=== PATIENT | male | born 1950 | race African-American/Black ===

== ENCOUNTER 2018-01-08 09:30 | Outpatient (RCR) | payer MEDICARE, OTHER | END 2018-01-20 | disposition home or self-care (01) | LOC: PTY 09:30 | DX: M54.5 Low back pain (principal) | CPT/HCPCS: 97110; 97162; G8978; G8979 ==

== ENCOUNTER 2018-02-05 11:00 | Outpatient (RCR) | payer MEDICARE, OTHER | END 2018-02-20 | disposition home or self-care (01) | LOC: PTY 11:00 | DX: M54.5 Low back pain (principal) ==

== ENCOUNTER 2018-02-26 11:05 | Outpatient (RCR) | payer MEDICARE, OTHER | END 2018-03-23 | disposition home or self-care (01) | LOC: PTY 11:05 | DX: M54.5 Low back pain (principal) ==

== ENCOUNTER 2018-04-02 11:10 | Outpatient (RCR) | payer MEDICARE, OTHER | END 2018-04-22 | disposition home or self-care (01) | LOC: PTY 11:10 | DX: M54.5 Low back pain (principal); G89.29 Other chronic pain; M25.512 Pain in left shoulder; M25.511 Pain in right shoulder ==

== ENCOUNTER 2018-05-02 11:00 | Outpatient (RCR) | payer MEDICARE, OTHER | END 2018-05-23 | disposition home or self-care (01) | LOC: PTY 11:00 | DX: M54.5 Low back pain (principal); G89.29 Other chronic pain; M25.512 Pain in left shoulder; M25.511 Pain in right shoulder | CPT/HCPCS: 97110; G8978; G8979 ==

== ENCOUNTER 2018-07-21 08:33 | Inpatient (IN) | payer MEDICARE, OTHER ==
[~2018-07-21] VITALS: Ht 172.7 cm; Wt 106.1 kg
[2018-07-21] MEDS ORDERED: METFORMIN HCL500 M1 ORAL (08:42)
[2018-07-21] MEDS ORDERED: HYDROCHLOROTHIA50 MG ORAL (08:42)
[2018-07-21] MEDS ORDERED: GLUCOTROL XL10 MG ORAL (08:42)
[2018-07-21] MEDS ORDERED: METOPROLOL SUCC50 MG ORAL (08:42)
[2018-07-21] MEDS ORDERED: Isovue-300 100ml vial INJ PRN (08:45)
[2018-07-21 08:57] VITALS: BP 160/97
--- NOTE | 2018-07-21 09:08 | Emergency Room Report ---
History of Present Illness General Chief Complaint: Abdominal Pain Source: Patient Present Illness HPI Patient presents with abdominal distention and discomfort. This started Hugo day after eating gumbo that he thinks might of been bad. He felt distended and constipated. He took multiple laxatives and this caused diarrhea. This hasn't improved the distention. However he stopped eating 2 days ago and also stopped taking his diabetes medication at that time. He denies any vomiting. The pain is rated 6/10 and constant but more of a distended feeling. He denies any dysuria. He is followed by a urologist for a urethral stricture. No blood in the stool. He's felt chills but has no documented fever. He thinks his blood sugars are elevated but hasn't been checking. He feels weak with standing. Patient denies sore throat, cough, chest pain aside from the pressure from his stomach. Not taking insulin. H/O HTN. Allergies: Coded Allergies: No Known Allergies (Unverified , 01/03/18) Patient History Past Medical History: see triage record Social History: Denies: smoking, alcohol use, drug use Social History Narrative from home Reviewed Nursing Documentation: PMH: Agreed; PSxH: Agreed Nursing Documentation-PMH Past Medical History: No History, Except For Hx Hypertension: Yes Hx Diabetes: Yes - Type 2 Review of Systems All Other Systems: negative except mentioned in HPI Physical Exam Vital Signs Date Time Temp Pulse Resp B/P (MAP) Pulse Ox O2 Delivery O2 Flow Rate FiO2 07/21/18 08:36 98.2 129 20 96/65 98 Room Air Sp02 EP Interpretation: reviewed, normal General Appearance: well appearing, no apparent distress, GCS 15 Head: normocephalic Eyes: bilateral eye normal inspection, bilateral eye PERRL ENT: moist mucus membranes Neck: supple Respiratory: lungs clear, normal breath sounds Cardiovascular #1: regular rate, rhythm Cardiovascular #2: 2+ radial (R) Gastrointestinal: normal inspection, normal bowel sounds, soft, no mass, no rebound, distended, tenderness - with some diffuse guarding Genitourinary: no CVA tenderness Musculoskeletal: back normal, gait/station normal, normal range of motion Neurologic: alert, oriented x3, grossly normal Psychiatric: mood/affect normal Skin: normal inspection, warm/dry Medical Decision Making Diagnostic Impression: Primary Impression: Abdominal pain Qualified Codes: R10.84 - Generalized abdominal pain Additional Impression: Cholecystitis ER Course Patient presents with abdominal distention for 4 days. Differential includes small bowel obstruction, gastroenteritis, pancreatitis, diverticulitis, urinary tract infection, diabetic ketoacidosis amongst others. Patient will be evaluated with EKG, chest x-ray and CT of the abdomen and also labs. The patient will be treated with IV hydration, Zofran, Tylenol. Initial Accu-Chek is 237. Elevated WBC. CT with cholecystitis. BC and antibiotics ordered. Patient declines more analgesia. Discussed results with patient. Admit med Dr. Garcias. Dr. Garcias and Dr. Sosa examined patient in ED. Laboratory Tests Test 07/21/18 09:12 White Blood Count 19.4 K/UL (4.8-10.8) H Red Blood Count 5.22 M/UL (4.70-6.10) Hemoglobin 15.7 G/DL (14.2-18.0) Hematocrit 47.5 % (42.0-52.0) Mean Corpuscular Volume 91 FL (80-99) Mean Corpuscular Hemoglobin 30.1 PG (27.0-31.0) Mean Corpuscular Hemoglobin Concent 33.1 G/DL (32.0-36.0) Red Cell Distribution Width 13.1 % (11.6-14.8) Platelet Count 225 K/UL (150-450) Mean Platelet Volume 5.6 FL (6.5-10.1) L Neutrophils (%) (Auto) % (45.0-75.0) Lymphocytes (%) (Auto) % (20.0-45.0) Monocytes (%) (Auto) % (1.0-10.0) Eosinophils (%) (Auto) % (0.0-3.0) Basophils (%) (Auto) % (0.0-2.0) Differential Total Cells Counted 100 Neutrophils % (Manual) 87 % (45-75) H Lymphocytes % (Manual) 7 % (20-45) L Monocytes % (Manual) 5 % (1-10) Eosinophils % (Manual) 0 % (0-3) Basophils % (Manual) 0 % (0-2) Band Neutrophils 1 % (0-8) Platelet Estimate Adequate Platelet Morphology Normal Red Blood Cell Morphology Normal Prothrombin Time 9.0 SEC (9.30-11.50) L Prothrombin Time INR 0.8 (0.9-1.1) L PTT 29 SEC (23-33) Sodium Level 134 MMOL/L (136-145) L Potassium Level 3.7 MMOL/L (3.5-5.1) Chloride Level 94 MMOL/L (98-107) L Carbon Dioxide Level 28 MMOL/L (21-32) Anion Gap 12 mmol/L (5-15) Blood Urea Nitrogen 20 mg/dL (7-18) H Creatinine 1.5 MG/DL (0.55-1.30) H Estimate Glomerular Filtration Rate 56.6 mL/min (>60) Glucose Level 248 MG/DL (74-106) H Lactic Acid Level 3.60 mmol/L (0.4-2.0) H Calcium Level 9.8 MG/DL (8.5-10.1) Total Bilirubin 1.4 MG/DL (0.2-1.0) H Direct Bilirubin 0.4 MG/DL (0.0-0.3) H Aspartate Amino Transferase (AST) 37 U/L (15-37) Alanine Aminotransferase (ALT) 62 U/L (12-78) Alkaline Phosphatase 97 U/L (46-116) Total Creatine Kinase 325 U/L (26-308) H Troponin I 0.016 ng/mL (0.000-0.056) Pro-B-Type Natriuretic Peptide 212 pg/mL (0-125) H Total Protein 8.7 G/DL (6.4-8.2) H Albumin 3.9 G/DL (3.4-5.0) Globulin 4.8 g/dL Albumin/Globulin Ratio 0.8 (1.0-2.7) L Lipase 91 U/L (73-393) EKG Diagnostic Results Rate: tachycardiac ST Segments: no acute changes Rhythm Strip Diag. Results EP Interpretation: yes Rhythm: no PVC's, no ectopy, other - Sinus tachycardia Chest X-Ray Diagnostic Results Chest X-Ray Diagnostic Results : Chest X-Ray Ordered: Yes # of Views/Limited/Complete: 1 View Indication: Other Interpretation: no consolidation, no effusion, no pneumothorax Impression: No acute disease Electronically Signed by: Tadeo Roy MD CT/MRI/US Diagnostic Results CT/MRI/US Diagnostic Results : Imaging Test Ordered: abd/pelvis Impression cholecystitis Last Vital Signs Date Time Temp Pulse Resp B/P (MAP) Pulse Ox O2 Delivery O2 Flow Rate FiO2 07/21/18 18:39 106 07/21/18 16:25 99.5 20 140/76 (97) 07/21/18 15:12 Room Air 07/21/18 13:39 99 Status: improved Referrals: NON PHYSICIAN (PCP) Tadeo Roy MD Jul 21, 2018 09:08
[2018-07-21 09:32] LABS: HEMATOCRIT 47.5 % (42.0-52.0); HEMOGLOBIN 15.7 G/DL (14.2-18.0); MEAN CORPUSCULAR VOLUME 91 FL (80-99); PLATELET COUNT 225 K/UL (150-450); RED BLOOD COUNT 5.22 M/UL (4.70-6.10); RED CELL DISTRIBUTION WIDTH 13.1 % (11.6-14.8); WHITE BLOOD COUNT 19.4 K/UL (4.8-10.8)
--- NOTE | 2018-07-21 09:40 | Diagnostic Imaging Report ---
EXAM: XR Chest, 1 View CLINICAL HISTORY: ABD PAIN TECHNIQUE: Frontal view of the chest. COMPARISON: No relevant prior studies available. FINDINGS: Lungs: Reduced lung volumes and elevation of the left diaphragm. Mild basilar atelectasis. Pleural space: Query left pleural effusion. No pneumothorax. Heart: Unremarkable. No cardiomegaly. Mediastinum: Unremarkable. Bones/joints: No acute fracture. IMPRESSION: Reduced lung volumes and elevation of the left diaphragm. Mild basilar atelectasis.
[2018-07-21 09:45] LABS: ANION GAP 12 mmol/L (5-15); BLOOD UREA NITROGEN 20 mg/dL (7-18); CALCIUM 9.8 MG/DL (8.5-10.1); CARBON DIOXIDE 28 MMOL/L (21-32); CHLORIDE 94 MMOL/L (98-107); CREATININE 1.5 MG/DL (0.55-1.30); POTASSIUM 3.7 MMOL/L (3.5-5.1); SODIUM 134 MMOL/L (136-145)
[2018-07-21 09:52] LABS: INR 0.8 (0.9-1.1)
[2018-07-21 09:57] LABS: ALANINE AMINOTRANSFERASE 62 U/L (12-78); ALBUMIN 3.9 G/DL (3.4-5.0); ALBUMIN/GLOBULIN RATIO 0.8 (1.0-2.7); ALKALINE PHOSPHATASE 97 U/L (46-116); ASPARTATE AMINO TRANSFERASE 37 U/L (15-37); BILIRUBIN,TOTAL 1.4 MG/DL (0.2-1.0); CREATINE KINASE 325 U/L (26-308)
[2018-07-21 10:00] VITALS: BP 154/92
[2018-07-21 10:08] LABS: BILIRUBIN,DIRECT 0.4 MG/DL (0.0-0.3)
--- NOTE | 2018-07-21 10:34 | Diagnostic Imaging Report ---
EXAM: CT Abdomen and Pelvis With Intravenous Contrast CLINICAL HISTORY: ABD PAIN TECHNIQUE: Axial computed tomography images of the abdomen and pelvis with intravenous contrast. CTDI is 19.51 mGy and DLP is 1157 mGy-cm. One or more of the following dose reduction techniques were used: automated exposure control, adjustment of the mA and/or kV according to patient size, use of iterative reconstruction technique. COMPARISON: No relevant prior studies available. FINDINGS: Lung bases: Consolidative atelectasis in the left lung base. Heart: Cardiomegaly. ABDOMEN: Liver: Fatty liver. Gallbladder and bile ducts: Cholelithiasis, gallbladder wall thickening and surrounding haziness. Pancreas: Unremarkable. Spleen: Unremarkable. Adrenals: Unremarkable. Kidneys and ureters: Small low-attenuation foci in the left kidney. Stomach and bowel: Colonic diverticula. Reactive thickening in the stomach from the cholecystitis. PELVIS: Appendix: No findings to suggest acute appendicitis. Bladder: The bladder is underdistended and not well assessed. Reproductive: Unremarkable. ABDOMEN and PELVIS: Intraperitoneal space: Unremarkable. Bones/joints: Small sclerosis in the right acetabulum Soft tissues: Unremarkable. Vasculature: Unremarkable. No abdominal aortic aneurysm. Lymph nodes: No enlarged lymph nodes. IMPRESSION: Cholelithiasis, gallbladder wall thickening and surrounding haziness. Findings suggest cholecystitis. [employer] 07/21/18 10:38 Verify Receipt Verified receipt with MARJORIE Rios in ER for Dr Roy on 07/21 10:37 (-08:00)
[2018-07-21] MEDS ORDERED: Cefepime HCl 1 GM in D5W 55 ML IVPB ONE (10:45)
[2018-07-21] MEDS ORDERED: Milk of Magnesia 30ml Ud ORAL PRN (11:30)
[2018-07-21] MEDS ORDERED: Morphine Sulfate 2mg/ml Inj IVP PRN (11:30)
[2018-07-21] MEDS ORDERED: D5W w/KCl 20mEq 1,000 ML IV SCH (11:30)
[2018-07-21] MEDS ORDERED: Morphine Sulfate 4mg/ml Inj (IV/IM USE ONLY) IVP PRN ×2 (11:30)
[2018-07-21] MEDS ORDERED: Zolpidem 5mg tab ORAL PRN (11:30)
[2018-07-21] MEDS ORDERED: HYDROmorphone 1mg/ml Carpuject IVP PRN (11:30)
[2018-07-21] MEDS ORDERED: Hydromorphone 0.5mg/0.5ml inj IVP PRN (11:30)
[2018-07-21] MEDS ORDERED: LORazepam Inj 2mg/ml 1ml IV PRN (11:30)
[2018-07-21] MEDS ORDERED: NovoLOG Insulin Flexpen SUBQ SCH ×2 (11:30→16:30)
[2018-07-21] MEDS ORDERED: Nitroglycerin Subl 0.4mg tab SL PRN (11:30)
--- NOTE | 2018-07-21 12:15 | History and Physical Report ---
DATE OF ADMISSION: 07/21/2018 CHIEF COMPLAINT AND REASON FOR HOSPITALIZATION: The patient is admitted with right upper quadrant pain and cholecystitis. 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 He presents with right upper quadrant pain on and off since 07/16/2018. He tried laxatives diarrhea, and that he had bloating and pain, which has progressed and he came to the emergency room. The CT abdomen shows fatty liver, cholelithiasis, gallbladder wall thickening, and surrounding haziness. The patient has no prior history of cholecystitis or liver disease. He had coronary artery stent in the right coronary in 2004 with a negative stress test in 2007. No cardiac symptoms since then. ALLERGIES: None known. HOME MEDICATIONS: Glipizide 10 mg daily, metformin 500 mg b.i.d., metoprolol 50 mg daily, hydrochlorothiazide 50 mg daily, Flomax 0.4 b.i.d., aspirin 81 mg daily, Plavix 75 mg daily, Motrin 800 mg b.i.d., isosorbide 20 mg daily, atorvastatin 40 mg daily, and a muscle relaxant at bedtime. HABITS: He is a nonsmoker. He did use marijuana in the past. He is a moderate alcohol drinker. He has used other drugs in the past, but no intravenous drug usage. SOCIAL HISTORY: He is single, retired. SYSTEM REVIEW: HEAD, EYES, EARS, NOSE, AND THROAT: He has dry eyes. No diabetic retinopathy. Vision and hearing is good. ENDOCRINE: Diabetes. No obesity. No known thyroid disease. PULMONARY: No chronic cough or asthma. CARDIAC: See history of present illness. GASTROINTESTINAL: No GI bleeding or ulcers or chronic abdominal pain. GENITOURINARY: He has urethral stricture that is dilated every three months by urologist. He is currently voiding well. No dysuria or hesitancy. NEUROLOGIC: No CVA, syncope or seizures. HEMATOLOGIC/ONCOLOGIC: No bleeding disorder, DVT or malignancy. PAST SURGICAL HISTORY: Include fusion of C3-C6, coronary artery stenting, and urethral stricture dilation. PHYSICAL EXAMINATION: GENERAL: The patient is alert man, in no acute distress. VITAL SIGNS: BMI 35.7, temperature 98.5, pulse 118, respirations 19, blood pressure 154/92, and pulse oximetry 96. HEAD, EYES, EARS, NOSE, AND THROAT: Sclerae nonicteric. Ocular motions intact in all directions. Oral mucosa moist. NECK: No adenopathy or thyroid enlargement. LUNGS: Clear. HEART: Rhythm is regular. No murmur. ABDOMEN: Obese and soft. I am unable to feel liver or spleen. There is mild tenderness in the right upper quadrant to deep palpation. GENITOURINARY: Penis and testes normal. RECTAL: Deferred. EXTREMITIES: No edema, cyanosis, or clubbing. NEUROLOGIC: He is alert and oriented. Cranial nerves are intact. PERTINENT LABORATORY DATA: White count 19.4, hemoglobin is 15.7. Sodium 134, potassium 3.7, BUN 20, creatinine 1.5, bilirubin is 1.4. Troponin 0.016. Albumin 3.9. AST, ALT, and alkaline phosphatase are all normal. IMPRESSION: 1. Acute cholecystitis. 2. Borderline troponin of uncertain significance. 3. History of coronary disease with no recent symptoms. 4. Diabetes. 5. Obesity. PLAN: The patient was started on IV antibiotics and NPO. We will have surgical consultation, watch him closely in view of his comorbidities. Souleymane Garcias M.D. : ELVI/OZIEL JOB#: [id number] CC:
--- NOTE | 2018-07-21 12:45 | Consultation ---
History of Present Illness General Date patient seen: Jul 21, 2018 Chief Complaint: Abdominal Pain Present Illness HPI 68 year old male with multiple medical comorbidities presented to ED with complaints of worsening abdominal pain. States pain began [employer] evening after dinner and present since. Has not been improving and intermittently acutely worse so he came to ED for evaluation. pain RUQ/epigastric 8/10 at max. attempted multiple over the counter laxatives and antacids without relief. intermittent nausea. no emesis. constipated. In ED noted to have cholecystitis. surgery called to evaluate. patient seen, chart reviewed, patient examined. labs noted. CT noted Allergies: Coded Allergies: No Known Allergies (Unverified , 01/03/18) Medication History Scheduled Glipizide* (Glucotrol Xl*), 10 MG ORAL ACBREAKFAST, (Reported) Hydrochlorothiazide* (Hydrochlorothiazide*), 50 MG ORAL DAILY, (Reported) Metformin Hcl* (Metformin Hcl*), 500 MG ORAL TWICE A DAY, (Reported) Metoprolol Succinate* (Metoprolol Succinate*), 50 MG ORAL DAILY, (Reported) Patient History History Provided By: Patient, Medical Record, PMD Healthcare decision maker Resuscitation status Advanced Directive on File Past Medical/Surgical History Past Medical/Surgical History: (1) Abdominal pain (2) Cholecystitis Review of Systems All Other Systems: negative except mentioned in HPI Physical Exam General Appearance: no apparent distress, alert Lines, tubes and drains: peripheral HEENT: mucous membranes moist Neck: supple, normal inspection Respiratory/Chest: normal breath sounds, no respiratory distress, no accessory muscle use Cardiovascular/Chest: normal rate Abdomen: soft, no organomegaly, no mass, guarding - RUQ, tender Extremities: normal inspection Skin Exam: warm/dry Neurologic: alert, oriented x 3 Last 24 Hour Vital Signs Date Time Temp Pulse Resp B/P (MAP) Pulse Ox O2 Delivery O2 Flow Rate FiO2 07/21/18 10:00 98.5 118 19 154/92 96 Room Air 07/21/18 08:57 98.4 127 18 160/97 94 Room Air 07/21/18 08:57 127 18 Room Air 07/21/18 08:36 98.2 129 20 96/65 98 Room Air Laboratory Tests Test 07/21/18 09:12 White Blood Count 19.4 K/UL (4.8-10.8) H Red Blood Count 5.22 M/UL (4.70-6.10) Hemoglobin 15.7 G/DL (14.2-18.0) Hematocrit 47.5 % (42.0-52.0) Mean Corpuscular Volume 91 FL (80-99) Mean Corpuscular Hemoglobin 30.1 PG (27.0-31.0) Mean Corpuscular Hemoglobin Concent 33.1 G/DL (32.0-36.0) Red Cell Distribution Width 13.1 % (11.6-14.8) Platelet Count 225 K/UL (150-450) Mean Platelet Volume 5.6 FL (6.5-10.1) L Neutrophils (%) (Auto) % (45.0-75.0) Lymphocytes (%) (Auto) % (20.0-45.0) Monocytes (%) (Auto) % (1.0-10.0) Eosinophils (%) (Auto) % (0.0-3.0) Basophils (%) (Auto) % (0.0-2.0) Differential Total Cells Counted 100 Neutrophils % (Manual) 87 % (45-75) H Lymphocytes % (Manual) 7 % (20-45) L Monocytes % (Manual) 5 % (1-10) Eosinophils % (Manual) 0 % (0-3) Basophils % (Manual) 0 % (0-2) Band Neutrophils 1 % (0-8) Platelet Estimate Adequate Platelet Morphology Normal Red Blood Cell Morphology Normal Prothrombin Time 9.0 SEC (9.30-11.50) L Prothromb Time International Ratio 0.8 (0.9-1.1) L Activated Partial Thromboplast Time 29 SEC (23-33) Sodium Level 134 MMOL/L (136-145) L Potassium Level 3.7 MMOL/L (3.5-5.1) Chloride Level 94 MMOL/L (98-107) L Carbon Dioxide Level 28 MMOL/L (21-32) Anion Gap 12 mmol/L (5-15) Blood Urea Nitrogen 20 mg/dL (7-18) H Creatinine 1.5 MG/DL (0.55-1.30) H Estimat Glomerular Filtration Rate 56.6 mL/min (>60) Glucose Level 248 MG/DL (74-106) H Lactic Acid Level 3.60 mmol/L (0.4-2.0) H Calcium Level 9.8 MG/DL (8.5-10.1) Total Bilirubin 1.4 MG/DL (0.2-1.0) H Direct Bilirubin 0.4 MG/DL (0.0-0.3) H Aspartate Amino Transf (AST/SGOT) 37 U/L (15-37) Alanine Aminotransferase (ALT/SGPT) 62 U/L (12-78) Alkaline Phosphatase 97 U/L (46-116) Total Creatine Kinase 325 U/L (26-308) H Troponin I 0.016 ng/mL (0.000-0.056) Pro-B-Type Natriuretic Peptide 212 pg/mL (0-125) H Total Protein 8.7 G/DL (6.4-8.2) H Albumin 3.9 G/DL (3.4-5.0) Globulin 4.8 g/dL Albumin/Globulin Ratio 0.8 (1.0-2.7) L Lipase 91 U/L (73-393) Height (Feet): 5 Height (Inches): 8.00 Weight (Pounds): 235 Medications Current Medications Medications (Trade) Dose Ordered Sig/Eben Route PRN Reason Start Time Stop Time Status Last Admin Dose Admin Acetaminophen (Tylenol) 650 mg Q4H PRN ORAL Mild Pain (Pain Scale 1-3) 07/21/18 11:30 08/20/18 11:29 UNV Acetaminophen (Tylenol) 650 mg Q4H PRN ORAL fever 07/21/18 11:30 08/20/18 11:29 UNV Atorvastatin Calcium (Lipitor) 40 mg QHS ORAL 07/21/18 21:00 08/20/18 20:59 UNV Cyclobenzaprine HCl (Flexeril) 10 mg QHS ORAL 07/21/18 21:00 08/20/18 20:59 UNV Dextrose (Dextrose 50%) 25 ml Q30M PRN IV Hypoglycemia 07/21/18 11:30 08/20/18 11:29 Dextrose (Dextrose 50%) 25 ml Q30M PRN IV Hypoglycemia 07/21/18 11:30 08/20/18 11:29 UNV Dextrose (Dextrose 50%) 50 ml Q30M PRN IV Hypoglycemia 07/21/18 11:30 08/20/18 11:29 Dextrose (Dextrose 50%) 50 ml Q30M PRN IV Hypoglycemia 07/21/18 11:30 08/20/18 11:29 UNV Dextrose/ Electrolytes 1,000 ml @ 100 mls/hr Q10H IV 07/21/18 12:17 08/20/18 12:16 UNV Famotidine (Pepcid I.v.) 20 mg Q12HR IVP 07/21/18 21:00 08/20/18 20:59 UNV Heparin Sodium (Porcine) (Heparin 5000 units/ml) 5,000 units EVERY 12 HOURS SUBQ 07/21/18 21:00 08/20/18 20:59 UNV Heparin Sodium (Porcine) (Heparin 5000 units/ml) 5,000 units EVERY 12 HOURS SUBQ 07/21/18 21:00 08/20/18 20:59 UNV Hydromorphone HCl (Dilaudid) 0.5 mg Q2HR PRN IVP For Pain 07/21/18 11:30 07/28/18 11:29 UNV Hydromorphone HCl (Dilaudid) 1 mg Q2HR PRN IVP Severe Pain (Pain Scale 7-10) 07/21/18 11:30 07/28/18 11:29 UNV Insulin Aspart (NovoLOG) BEFORE MEALS AND HS SUBQ 07/21/18 11:30 08/20/18 11:29 UNV Iopamidol (Isovue-300 100ml) 100 ml NOW PRN INJ Radiology Procedure 07/21/18 08:45 Lorazepam (Ativan 2mg/ml 1ml) 0.5 mg Q4H PRN IV For Anxiety 07/21/18 11:30 07/28/18 11:29 Magnesium Hydroxide (Mom) 30 ml HSPRN PRN ORAL Constipation 07/21/18 11:30 08/20/18 11:29 UNV Metoprolol Succinate (Toprol XL) 50 mg DAILY ORAL 07/22/18 09:00 08/21/18 08:59 UNV Morphine Sulfate (Morphine Sulfate) 1 mg Q3H PRN IVP Breakthrough Pain 07/21/18 11:30 07/28/18 11:29 Morphine Sulfate (Morphine Sulfate) 2 mg Q3H PRN IVP Moderate Pain (Pain Scale 4-6) 07/21/18 11:30 07/28/18 11:29 Morphine Sulfate (Morphine Sulfate) 4 mg Q3H PRN IVP Severe Pain (Pain Scale 7-10) 07/21/18 11:30 07/28/18 11:29 Nitroglycerin (Nitro-Bid) 1 inch Q6HR ONCE TOPIC 07/21/18 12:00 07/21/18 12:01 UNV Nitroglycerin (Ntg) 0.4 mg Q5M X 3 DOSES PRN SL Prn Chest Pain 07/21/18 11:30 08/20/18 11:29 UNV Ondansetron HCl (Zofran) 4 mg Q4HR PRN IVP Nausea & Vomiting 07/21/18 11:30 08/20/18 11:29 UNV Ondansetron HCl (Zofran) 4 mg Q6H PRN IVP Nausea & Vomiting 07/21/18 11:30 08/20/18 11:29 Piperacillin Sod/ Tazobactam Sod 3.375 gm/Sodium Chloride 100 ml @ 200 mls/hr Q8HR IVPB 07/21/18 14:00 07/28/18 13:59 UNV Piperacillin Sod/ Tazobactam Sod 3.375 gm/Sodium Chloride 110 ml @ 220 mls/hr EVERY 8 HOURS IVPB 07/21/18 14:00 07/28/18 13:59 UNV Sodium Chloride 1,000 ml @ 300 mls/hr Q3H20M IV 07/21/18 08:45 08/20/18 08:44 07/21/18 11:47 Tamsulosin HCl (Flomax) 0.4 mg BID ORAL 07/21/18 18:00 08/20/18 17:59 UNV Temazepam (Restoril) 15 mg HSPRN PRN ORAL Insomnia 07/21/18 11:30 07/28/18 11:29 UNV Zolpidem Tartrate (Ambien) 5 mg HSPRN PRN ORAL Insomnia 07/21/18 11:30 07/28/18 11:29 UNV Assessment/Plan Problem List: (1) Cholecystitis Assessment & Plan: acute cholecystitis tachycardic leukocytosis elevated lfts CT noted exam with +murphys -npo -iv fluids -iv abx -need to cool down -ultrasound ordered -trend labs thank you will follow with recs. ICD Codes: K81.9 - Cholecystitis, unspecified SNOMED: [id number] Status: stable [place] Jul 21, 2018 12:45
[2018-07-21 13:09] LABS: APPEARANCE,URINE CLEAR; BILIRUBIN, URINE NEGATIVE (NEGATIVE); COLOR,URINE PALE YELLOW; GLUCOSE, URINE (UA) 3+ (NEGATIVE); KETONES,URINE 1+ (NEGATIVE); LEUKOCYTE ESTERASE ,URINE NEGATIVE (NEGATIVE); NITRITE,URINE NEGATIVE (NEGATIVE); PH,URINE 7 (4.5-8.0); PROTEIN,URINE 2+ (NEGATIVE); UROBILINOGEN,URINE NORMAL MG/DL (0.0-1.0)
[2018-07-21 13:39] VITALS: BP 137/80
[2018-07-21] MEDS ORDERED: Nitroglycerin 2% oint pkt TOPIC ONE (13:57)
[2018-07-21] MEDS ORDERED: Piperacillin/Tazobactam 3.375 GM in NS 110 ML IVPB SCH (14:00)
[2018-07-21] MEDS: Piperacillin/Tazobactam 3.375 GM in NS 110 ML IVPB SCH ×2 (15:53→22:19)
[2018-07-21 16:25] VITALS: BP 140/76
[2018-07-21] MEDS: Morphine Sulfate 4mg/ml Inj (IV/IM USE ONLY) IVP PRN (16:49)
[2018-07-21] MEDS: Tamsulosin 0.4mg cap ORAL SCH (18:00)
[2018-07-21 20:00] VITALS: BP 131/76
[2018-07-21] MEDS ORDERED: Atorvastatin 20mg tab ORAL SCH (21:00)
[2018-07-21] MEDS ORDERED: Heparin 5000 units/ml inj SUBQ SCH (21:00)
[2018-07-21] MEDS ORDERED: Cyclobenzaprine 10mg Tab ORAL SCH (21:00)
--- NOTE | 2018-07-21 21:28 | Diagnostic Imaging Report ---
EXAM: US Abdomen Complete CLINICAL HISTORY: ABD PAIN TECHNIQUE: Real-time ultrasound of the abdomen (complete) with image documentation. COMPARISON: No relevant prior studies available. FINDINGS: Limitations: Examination limited due to patient body habitus and patient inability to complete the examination due to pain. Liver: Hepatic steatosis, correlate to exclude steatohepatitis. 17.5 cm No intrahepatic bile duct dilation. Gallbladder: Cholelithiasis without gallbladder wall thickening, pericholecystic fluid, and with negative sonographic Johnson sign. Gallbladder wall: 0.1 cm. Common bile duct: Unremarkable as visualized. No stones. No dilation. Pancreas: See below. Kidneys: Right kidney: 10.7 x 5.3 x 5.1 cm. Spleen: Due to above limitations, nonvisualized spleen, left kidney, pancreas, aorta, and IVC. Aorta: See above. Inferior vena cava: See above. IMPRESSION: 1. Examination limited due to patient body habitus and patient inability to complete the examination due to pain. 2. Due to above limitations, nonvisualized spleen, left kidney, pancreas, aorta, and IVC. 3. Cholelithiasis without sonographic evidence for the clinical diagnosis of acute cholecystitis. 4. Hepatic steatosis, correlate to exclude steatohepatitis.
[2018-07-21] MEDS: Heparin 5000 units/ml inj SUBQ SCH (22:19)
[2018-07-22] VITALS: BP 142/86
[2018-07-22 04:00] VITALS: BP 131/87
[2018-07-22] MEDS: Piperacillin/Tazobactam 3.375 GM in NS 110 ML IVPB SCH ×2 (05:59→16:46)
[2018-07-22] MEDS: NovoLOG Insulin Flexpen SUBQ SCH ×3 (06:04→17:42)
[2018-07-22 07:22] LABS: BASOPHILS % (AUTO) 0.9 % (0.0-2.0); EOSINOPHILS % (AUTO) 0.4 % (0.0-3.0); HEMATOCRIT 38.3 % (42.0-52.0); HEMOGLOBIN 12.5 G/DL (14.2-18.0); LYMPHOCYTES % (AUTO) 12.9 % (20.0-45.0); MEAN CORPUSCULAR VOLUME 92 FL (80-99); MONOCYTES % (AUTO) 11.3 % (1.0-10.0); NEUTROPHILS % (AUTO) 74.5 % (45.0-75.0); PLATELET COUNT 172 K/UL (150-450); RED BLOOD COUNT 4.15 M/UL (4.70-6.10); WHITE BLOOD COUNT 12.3 K/UL (4.8-10.8)
[2018-07-22 07:37] LABS: INR 1.1 (0.9-1.1)
[2018-07-22 08:00] VITALS: BP 120/76
[2018-07-22] MEDS: Tamsulosin 0.4mg cap ORAL SCH ×2 (08:23→17:33)
[2018-07-22] MEDS: Heparin 5000 units/ml inj SUBQ SCH ×2 (08:25→21:58)
[2018-07-22 08:29] LABS: ALANINE AMINOTRANSFERASE 124 U/L (12-78); ALBUMIN 2.7 G/DL (3.4-5.0); ALBUMIN/GLOBULIN RATIO 0.7 (1.0-2.7); ALKALINE PHOSPHATASE 93 U/L (46-116); ANION GAP 6 mmol/L (5-15); ASPARTATE AMINO TRANSFERASE 78 U/L (15-37); BILIRUBIN,TOTAL 1.5 MG/DL (0.2-1.0); BLOOD UREA NITROGEN 18 mg/dL (7-18); CALCIUM 8.4 MG/DL (8.5-10.1); CARBON DIOXIDE 28 MMOL/L (21-32); CHLORIDE 105 MMOL/L (98-107); CHOLESTEROL 122 MG/DL (< 200); CREATININE 1.3 MG/DL (0.55-1.30); HDL CHOLESTEROL 50 MG/DL (40-60); POTASSIUM 3.8 MMOL/L (3.5-5.1); SODIUM 139 MMOL/L (136-145); TRIGLYCERIDES 72 MG/DL (30-150)
[2018-07-22 08:39] LABS: BILIRUBIN,DIRECT 0.9 MG/DL (0.0-0.3)
[2018-07-22] MEDS: Morphine Sulfate 4mg/ml Inj (IV/IM USE ONLY) IVP PRN (08:39)
[2018-07-22] MEDS ORDERED: Aspirin Baby 81mg ORAL SCH (09:00)
[2018-07-22] MEDS ORDERED: Metoprolol Succinate XL 50mg tab ORAL SCH ×3 (09:00→21:00)
--- NOTE | 2018-07-22 11:19 | General Progress Note ---
Assessment/Plan Problem List: (1) Acute coronary syndromes ICD Codes: I24.9 - Acute ischemic heart disease, unspecified SNOMED: 254244790 (2) Diabetes ICD Codes: E11.9 - Type 2 diabetes mellitus without complications SNOMED: 79494508 (3) Rhabdomyolysis ICD Codes: M62.82 - Rhabdomyolysis SNOMED: 021872346 (4) Troponin level elevated ICD Codes: R74.8 - Abnormal levels of other serum enzymes SNOMED: 277493323, 965960845, 855230105 (5) Cholecystitis ICD Codes: K81.9 - Cholecystitis, unspecified SNOMED: 61663649 (6) Abdominal pain ICD Codes: R10.9 - Unspecified abdominal pain SNOMED: 57896901 Qualifiers: Qualified Codes: R10.84 - Generalized abdominal pain Assessment/Plan elevated trop and ck total, echo pending, ekg old iwmi, US noted, continue cardiac meds, antibiotics Subjective Constitutional: Reports: other - ruq pain HEENT: Reports: no symptoms Cardiovascular: Reports: other - chest pain when pushed on chest Respiratory: Reports: no symptoms Gastrointestinal/Abdominal: Reports: abdominal pain Genitourinary: Reports: no symptoms Neurologic/Psychiatric: Reports: no symptoms Endocrine: Reports: no symptoms Hematologic/Lymphatic: Reports: no symptoms Allergies: Coded Allergies: No Known Allergies (Unverified , 01/03/18) Objective Last 24 Hour Vital Signs Date Time Temp Pulse Resp B/P (MAP) Pulse Ox O2 Delivery O2 Flow Rate FiO2 07/22/18 09:00 Room Air 07/22/18 08:23 99 120/76 07/22/18 08:00 98.9 99 20 120/76 (91) 95 07/22/18 04:00 97.9 104 22 131/87 (102) 94 07/22/18 00:00 99.2 112 22 142/86 (104) 94 07/21/18 21:00 Room Air 07/21/18 20:00 97.8 116 22 131/76 (94) 94 07/21/18 18:39 106 07/21/18 16:25 99.5 122 20 140/76 (97) 07/21/18 15:12 Room Air 07/21/18 13:57 137/80 07/21/18 13:39 98.3 96 20 137/80 99 Room Air 07/21/18 13:36 98.5 118 19 154/92 96 Room Air Intake and Output 07/21/18 07/22/18 19:00 07:00 Intake Total 1200 ml 1210.0 ml Output Total 425 ml Balance 1200 ml 785.0 ml Intake IV Total 1200 ml 1210.0 ml Output Urine Total 425 ml # Voids 3 Laboratory Tests 07/21/18 12:30: Urine Color Pale yellow, Urine Appearance Clear, Urine pH 7, Urine Specific [place] 1.005, Urine Protein 2+H, Urine Glucose (UA) 3+H, Urine Ketones 1+H, Urine Blood 1+H, Urine Nitrite Negative, Urine Bilirubin Negative, Urine Urobilinogen Normal, Urine Leukocyte Esterase Negative, Urine RBC 0-2H, Urine WBC 0-2, Urine Squamous Epithelial Cells Occasional, Urine Bacteria Few 07/22/18 06:15: White Blood Count 12.3H, Red Blood Count 4.15L, Hemoglobin 12.5L, Hematocrit 38.3L, Mean Corpuscular Volume 92, Mean Corpuscular Hemoglobin 30.1, Mean Corpuscular Hemoglobin Concent 32.7, Red Cell Distribution Width 14.0, Platelet Count 172, Mean Platelet Volume 6.1L, Neutrophils (%) (Auto) 74.5, Lymphocytes ( %) (Auto) 12.9L, Monocytes (%) (Auto) 11.3H, Eosinophils (%) (Auto) 0.4, Basophils (%) (Auto) 0.9, Prothrombin Time 11.4, Prothromb Time International Ratio 1.1, Activated Partial Thromboplast Time 32, Sodium Level 139, Potassium Level 3.8, Chloride Level 105, Carbon Dioxide Level 28, Anion Gap 6, Blood Urea Nitrogen 18, Creatinine 1.3, Estimat Glomerular Filtration Rate > 60, Glucose Level 237H, Hemoglobin A1c 8.5H, Calcium Level 8.4L, Total Bilirubin 1.5H, Direct Bilirubin 0.9H, Aspartate Amino Transf (AST/SGOT) 78H, Alanine Aminotransferase (ALT/SGPT) 124H, Alkaline Phosphatase 93, Total Creatine Kinase 391H, Creatine Kinase MB 6.0H, Creatine Kinase MB Relative Index 1.5, Troponin I 0.812H, Total Protein 6.6, Albumin 2.7L, Globulin 3.9, Albumin/ Globulin Ratio 0.7L, Triglycerides Level 72, Cholesterol Level 122, LDL Cholesterol 66, HDL Cholesterol 50, Cholesterol/HDL Ratio 2.4L Height (Feet): 5 Height (Inches): 8.00 Weight (Pounds): 235 General Appearance: no apparent distress, obese EENT: normal ENT inspection Neck: normal alignment Cardiovascular: normal rate, regular rhythm Respiratory/Chest: lungs clear, normal breath sounds Abdomen: soft, other - mild ruq tender Extremities: no calf tenderness, other - no edema Souleymane Garcias MD Jul 22, 2018 11:19
[2018-07-22] MEDS ORDERED: Milk of Magnesia 30ml Ud ORAL PRN (11:30)
[2018-07-22] MEDS ORDERED: Nitroglycerin 2% oint pkt TOPIC SCH (12:00)
[2018-07-22 12:03] VITALS: BP 132/80
[2018-07-22] MEDS ORDERED: Nitroglycerin Subl 0.4mg tab SL PRN (13:00)
[2018-07-22] MEDS ORDERED: Isovue-300 100ml vial INJ PRN (13:30)
[2018-07-22] MEDS ORDERED: LORazepam Inj 2mg/ml 1ml IV PRN (13:30)
[2018-07-22] MEDS ORDERED: Hydromorphone 0.5mg/0.5ml inj IVP PRN (14:00)
[2018-07-22 16:00] VITALS: BP 152/78
[2018-07-22] MEDS: Nitroglycerin 2% oint pkt TOPIC SCH (17:32)
--- NOTE | 2018-07-22 17:42 | General Surgery Progress Note ---
General Surgery-Progress Note Subjective Additional Comments still with RUQ tenderness. labs noted no acute events. Objective Last 24 Hour Vital Signs Date Time Temp Pulse Resp B/P (MAP) Pulse Ox O2 Delivery O2 Flow Rate FiO2 07/22/18 17:32 157/78 07/22/18 12:13 132/80 07/22/18 12:03 97.3 76 17 132/80 (97) 98 07/22/18 09:00 Room Air 07/22/18 08:23 99 120/76 07/22/18 08:00 98.9 99 20 120/76 (91) 95 07/22/18 04:00 97.9 104 22 131/87 (102) 94 07/22/18 00:00 99.2 112 22 142/86 (104) 94 07/21/18 21:00 Room Air 07/21/18 20:00 97.8 116 22 131/76 (94) 94 07/21/18 18:39 106 I&O Intake and Output 07/21/18 07/22/18 19:00 07:00 Intake Total 1200 ml 1210.0 ml Output Total 425 ml Balance 1200 ml 785.0 ml Intake IV Total 1200 ml 1210.0 ml Output Urine Total 425 ml # Voids 3 Drains: none Cardiovascular: RSR Respiratory: clear Abdomen: soft, tenderness, present bowel sounds, other - +murphys Extremities: no cyanosis Laboratory Tests Test 07/22/18 06:15 07/22/18 17:00 White Blood Count 12.3 K/UL (4.8-10.8) H Red Blood Count 4.15 M/UL (4.70-6.10) L Hemoglobin 12.5 G/DL (14.2-18.0) L Hematocrit 38.3 % (42.0-52.0) L Mean Corpuscular Volume 92 FL (80-99) Mean Corpuscular Hemoglobin 30.1 PG (27.0-31.0) Mean Corpuscular Hemoglobin Concent 32.7 G/DL (32.0-36.0) Red Cell Distribution Width 14.0 % (11.6-14.8) Platelet Count 172 K/UL (150-450) Mean Platelet Volume 6.1 FL (6.5-10.1) L Neutrophils (%) (Auto) 74.5 % (45.0-75.0) Lymphocytes (%) (Auto) 12.9 % (20.0-45.0) L Monocytes (%) (Auto) 11.3 % (1.0-10.0) H Eosinophils (%) (Auto) 0.4 % (0.0-3.0) Basophils (%) (Auto) 0.9 % (0.0-2.0) Prothrombin Time 11.4 SEC (9.30-11.50) Prothromb Time International Ratio 1.1 (0.9-1.1) Activated Partial Thromboplast Time 32 SEC (23-33) Sodium Level 139 MMOL/L (136-145) Potassium Level 3.8 MMOL/L (3.5-5.1) Chloride Level 105 MMOL/L (98-107) Carbon Dioxide Level 28 MMOL/L (21-32) Anion Gap 6 mmol/L (5-15) Blood Urea Nitrogen 18 mg/dL (7-18) Creatinine 1.3 MG/DL (0.55-1.30) Estimat Glomerular Filtration Rate > 60 mL/min (>60) Glucose Level 237 MG/DL (74-106) H Hemoglobin A1c 8.5 % (4.3-6.0) H Calcium Level 8.4 MG/DL (8.5-10.1) L Total Bilirubin 1.5 MG/DL (0.2-1.0) H Direct Bilirubin 0.9 MG/DL (0.0-0.3) H Aspartate Amino Transf (AST/SGOT) 78 U/L (15-37) H Alanine Aminotransferase (ALT/SGPT) 124 U/L (12-78) H Alkaline Phosphatase 93 U/L (46-116) Total Creatine Kinase 391 U/L (26-308) H Pending Creatine Kinase MB 6.0 NG/ML (0.0-3.6) H Pending Creatine Kinase MB Relative Index 1.5 Troponin I 0.812 ng/mL (0.000-0.056) Pending Total Protein 6.6 G/DL (6.4-8.2) Albumin 2.7 G/DL (3.4-5.0) L Globulin 3.9 g/dL Albumin/Globulin Ratio 0.7 (1.0-2.7) L Triglycerides Level 72 MG/DL (30-150) Cholesterol Level 122 MG/DL (< 200) LDL Cholesterol 66 mg/dL (<100) HDL Cholesterol 50 MG/DL (40-60) Cholesterol/HDL Ratio 2.4 (3.3-4.4) L Plan Problems: (1) Cholecystitis Assessment & Plan: acute cholecystitis tachycardic leukocytosis elevated lfts CT noted exam with +murphys US noted leukocytosis improved but lft's still abnormal troponin noted -npo -iv fluids -iv abx -need to cool down -appreciate cardiology input -trend labs thank you will follow with recs. Bjorn Sosa Jul 22, 2018 17:42
[2018-07-22 17:50] LABS: CKMB 5.7 NG/ML (0.0-3.6)
[2018-07-22 20:00] VITALS: BP 152/62
[2018-07-22] MEDS ORDERED: Zolpidem 5mg tab ORAL PRN (20:00)
--- NOTE | 2018-07-22 20:11 | Cardiology Progress Note ---
Assessment/Plan Assessment/Plan The patient is seen and examined, full consult note will be dictated shortly. Objective Last 24 Hour Vital Signs Date Time Temp Pulse Resp B/P (MAP) Pulse Ox O2 Delivery O2 Flow Rate FiO2 07/22/18 18:00 100 07/22/18 17:32 157/78 07/22/18 16:00 98.2 87 18 152/78 (102) 94 07/22/18 13:13 99 07/22/18 12:13 132/80 07/22/18 12:03 97.3 76 17 132/80 (97) 98 07/22/18 09:00 Room Air 07/22/18 08:23 99 120/76 07/22/18 08:00 98.9 99 20 120/76 (91) 95 07/22/18 04:00 97.9 104 22 131/87 (102) 94 07/22/18 00:00 99.2 112 22 142/86 (104) 94 07/21/18 21:00 Room Air Intake and Output 07/21/18 07/22/18 19:00 07:00 Intake Total 1200 ml 1210.0 ml Output Total 425 ml Balance 1200 ml 785.0 ml Intake IV Total 1200 ml 1210.0 ml Output Urine Total 425 ml # Voids 3 Laboratory Tests Test 07/22/18 06:15 07/22/18 17:00 White Blood Count 12.3 K/UL (4.8-10.8) H Red Blood Count 4.15 M/UL (4.70-6.10) L Hemoglobin 12.5 G/DL (14.2-18.0) L Hematocrit 38.3 % (42.0-52.0) L Mean Corpuscular Volume 92 FL (80-99) Mean Corpuscular Hemoglobin 30.1 PG (27.0-31.0) Mean Corpuscular Hemoglobin Concent 32.7 G/DL (32.0-36.0) Red Cell Distribution Width 14.0 % (11.6-14.8) Platelet Count 172 K/UL (150-450) Mean Platelet Volume 6.1 FL (6.5-10.1) L Neutrophils (%) (Auto) 74.5 % (45.0-75.0) Lymphocytes (%) (Auto) 12.9 % (20.0-45.0) L Monocytes (%) (Auto) 11.3 % (1.0-10.0) H Eosinophils (%) (Auto) 0.4 % (0.0-3.0) Basophils (%) (Auto) 0.9 % (0.0-2.0) Prothrombin Time 11.4 SEC (9.30-11.50) Prothromb Time International Ratio 1.1 (0.9-1.1) Activated Partial Thromboplast Time 32 SEC (23-33) Sodium Level 139 MMOL/L (136-145) Potassium Level 3.8 MMOL/L (3.5-5.1) Chloride Level 105 MMOL/L (98-107) Carbon Dioxide Level 28 MMOL/L (21-32) Anion Gap 6 mmol/L (5-15) Blood Urea Nitrogen 18 mg/dL (7-18) Creatinine 1.3 MG/DL (0.55-1.30) Estimat Glomerular Filtration Rate > 60 mL/min (>60) Glucose Level 237 MG/DL (74-106) H Hemoglobin A1c 8.5 % (4.3-6.0) H Calcium Level 8.4 MG/DL (8.5-10.1) L Total Bilirubin 1.5 MG/DL (0.2-1.0) H Direct Bilirubin 0.9 MG/DL (0.0-0.3) H Aspartate Amino Transf (AST/SGOT) 78 U/L (15-37) H Alanine Aminotransferase (ALT/SGPT) 124 U/L (12-78) H Alkaline Phosphatase 93 U/L (46-116) Total Creatine Kinase 391 U/L (26-308) H 426 U/L (26-308) H Creatine Kinase MB 6.0 NG/ML (0.0-3.6) H 5.7 NG/ML (0.0-3.6) H Creatine Kinase MB Relative Index 1.5 1.3 Troponin I 0.812 ng/mL (0.000-0.056) 1.526 ng/mL (0.000-0.056) Total Protein 6.6 G/DL (6.4-8.2) Albumin 2.7 G/DL (3.4-5.0) L Globulin 3.9 g/dL Albumin/Globulin Ratio 0.7 (1.0-2.7) L Triglycerides Level 72 MG/DL (30-150) Cholesterol Level 122 MG/DL (< 200) LDL Cholesterol 66 mg/dL (<100) HDL Cholesterol 50 MG/DL (40-60) Cholesterol/HDL Ratio 2.4 (3.3-4.4) L Rakesh Ramos MD Jul 22, 2018 20:11
[2018-07-22] MEDS ORDERED: Atorvastatin 20mg tab ORAL SCH (21:00)
[2018-07-22] MEDS: Metoprolol Succinate XL 100mg tab ORAL SCH (21:54)
[2018-07-22] MEDS: Cyclobenzaprine 10mg Tab ORAL SCH (21:54)
[2018-07-22] MEDS: Atorvastatin 80mg tab ORAL SCH (21:54)
[2018-07-22] MEDS: HYDROmorphone 1mg/ml Carpuject IVP PRN (21:57)
[2018-07-23] VITALS: BP 156/89
[2018-07-23] MEDS: Piperacillin/Tazobactam 3.375 GM in NS 110 ML IVPB SCH ×3 (00:06→17:04)
[2018-07-23] MEDS ORDERED: Heparin 25,000u/D5W 500ml 500 ML IV SCH (00:45)
[2018-07-23] MEDS ORDERED: Heparin 5000 units/ml inj IV ONE (00:45)
[2018-07-23 01:06] LABS: BASOPHILS % (AUTO) 1.1 % (0.0-2.0); EOSINOPHILS % (AUTO) 0.6 % (0.0-3.0); HEMATOCRIT 35.6 % (42.0-52.0); HEMOGLOBIN 12.1 G/DL (14.2-18.0); LYMPHOCYTES % (AUTO) 12.7 % (20.0-45.0); MEAN CORPUSCULAR VOLUME 92 FL (80-99); MONOCYTES % (AUTO) 12.2 % (1.0-10.0); NEUTROPHILS % (AUTO) 73.4 % (45.0-75.0); PLATELET COUNT 164 K/UL (150-450); RED BLOOD COUNT 3.88 M/UL (4.70-6.10)
[2018-07-23 01:13] LABS: ANION GAP 9 mmol/L (5-15); BLOOD UREA NITROGEN 18 mg/dL (7-18); CALCIUM 8.5 MG/DL (8.5-10.1); CARBON DIOXIDE 27 MMOL/L (21-32); CHLORIDE 103 MMOL/L (98-107); CREATININE 1.3 MG/DL (0.55-1.30); POTASSIUM 3.5 MMOL/L (3.5-5.1); SODIUM 139 MMOL/L (136-145)
--- NOTE | 2018-07-23 01:15 | Consultation ---
DATE OF CONSULTATION: 07/22/2018 CARDIOLOGY CONSULTATION CONSULTING PHYSICIAN: Rakesh Ramos M.D. REFERRING PHYSICIAN: Dr. Souleymane Garcias. REASON FOR CONSULTATION: Management of elevated troponin I level in a patient in preparation for cholecystectomy. HISTORY OF PRESENT ILLNESS: The patient is a very unfortunate 68-year-old gentleman with a history of coronary artery disease status post PCI in 2004 at [facility], history of hypertension, and history of diabetes mellitus, noncompliant with medication, who presents to the hospital with abdominal distention, constipation for which he took multiple laxities which converted the constipation to diarrhea. The patient also claims that he felt some chills, but they did not have any documented fever. At the time of arrival to the hospital, he was afebrile. His blood pressure, however, was 96/65 mmHg and heart rate of 129. A 12-lead electrocardiogram was significant for sinus tachycardia with nonspecific ST and T-wave abnormalities. He was admitted to the telemetry floor. Initial laboratory finding in the emergency department showed presence of leukocytosis with left shift and bandemia. Also elevation of troponin I level from a normal level of 0.016 up to 0.812, and ultimately the last third troponin I level pearl to 1.52. The patient also had elevation of CK-MB level. His beta natriuretic peptide was 212. He was admitted and cardiology consultation was made at request of Dr. Garcias for evaluation of possible non-ST elevation myocardial infarction. The patient may have cholecystectomy in near future. The patient was started on hydration and IV antibiotic therapy. The patient states that he has a history of coronary artery disease and had stent placement in 2004 at the at [facility] at that time. 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 Miguel Cuenca at [facility]. Last office visit with him was just about four weeks ago. PAST MEDICAL HISTORY: 1. Hypertension. 2. Urethral stricture with dilatation reportedly. 3. History of diabetes mellitus. Noncompliant with diabetic pills. 4. History of chronic cholecystitis/gallstones. ALLERGIES: No known drug allergies. SOCIAL HISTORY: Denies any tobacco, alcohol, or illicit drug use. FAMILY HISTORY: No premature coronary artery disease in the first-degree relatives. REVIEW OF SYSTEMS: HEENT: Denies any headache, diplopia, or blurred vision. CONSTITUTIONAL: He had some subjective chills, but no fever. Denies any weight loss or weight gain. No night sweats. CARDIOVASCULAR: He had some shortness of breath and chest pressure during this event. Denied any PND, orthopnea, leg swelling, or syncope. PULMONARY: Denies any cough, hemoptysis, or wheezing. GASTROINTESTINAL: He had some complaints of dyspepsia, abdominal distention, bloating, constipation and diarrhea following use of laxatives. GENITOURINARY: He had trouble with urethral stricture and gets dilatation every three months. Currently he denies any hematuria, dysuria, or incontinence. NEUROLOGIC: Denies any motor dysfunction, sensory deficit, or altered speech. MEDICATIONS: List of medications at home, glipizide 10 mg p.o. q.a.c., hydrochlorothiazide 50 mg p.o. daily, metformin 500 mg twice daily, and metoprolol 50 mg p.o. daily long-acting. PHYSICAL EXAMINATION: VITAL SIGNS: Blood pressure was 96/65, pulse 129, respirations 20, and temperature 98.2 degrees Fahrenheit. O2 saturation 98% on room air. GENERAL: The patient is a very unfortunate 68-year-old gentleman, alert and oriented x4. HEENT: Atraumatic and normocephalic. Anicteric. Pupils are equal, round, and reactive to light and accommodation. Extraocular muscles are intact. NECK: JVP is less than 5 cm. No carotid bruits. Carotid upstrokes 2+ bilaterally. CARDIOVASCULAR: Normal S1, S2. Regular rate and rhythm. No murmurs, gallops, or rubs. PMI is at fourth intercostal space in the midclavicular line. LUNGS: Clear to auscultation bilaterally. ABDOMEN: Soft, nontender, and nondistended. No hepatosplenomegaly. Positive bowel sounds. EXTREMITIES: No evidence of edema, clubbing, or cyanosis. LABORATORY FINDINGS: 1. Sodium 134, potassium 3.7, chloride 94, bicarbonate 28, BUN 20, and creatinine 1.5. Glucose is 248. Calcium is 9.8. Troponin I 0.016. Troponin #2 0.812. Troponin #3 1.526. Hemoglobin A1c was 8.5. AST and ALT 78 and 124 respectively. Alkaline phosphatase was 391. Triglycerides 72, total cholesterol 122, LDL 66, and HDL 50. 2. Chest x-ray showed reduced lung volumes and elevation of left hemidiaphragm with mild basilar atelectasis. ASSESSMENT AND PLAN: The patient is a very unfortunate 68-year-old gentleman seen in Cardiology consultation. 1. Non-ST elevation myocardial infarction. A 12-lead electrocardiogram does not show any ischemic changes, however, the patient has history of coronary artery disease and percutaneous coronary intervention in 2004. The patient will require to have left heart catheterization and coronary angiography, and evaluation of the previously implanted stent. Based on the results of coronary angiography, we will make a decision whether the patient will require to have any intervention prior to the elective surgery or can wait until cholecystectomy is done. the patient receive IV antibiotic therapy during the cool down period. 2-D echocardiography was reviewed and essentially shows no evidence of wall motion abnormalities with LVEF approximately 60% to 65%. We would like to continue aspirin 81 mg daily, increasing the metoprolol to 100 mg twice daily for double-product control as well as starting the patient on heparin drip. [facility] has been contacted and request for a telemetry bed was made. Dr. Garcias has been notified about the plan of care and he is in agreement. Once the patient arrives to [facility], we will make an attempt to contact his private tutors and teachers, Dr. Miguel Cuenca. He will arrange for a left heart catheterization and coronary angiography at [facility] once a bed is available. 2. History of hypertension. We will continue with metoprolol at this time. I may add calcium channel blockers. 3. History of diabetes mellitus, uncontrolled with high hemoglobin A1c. I will place a hold on metformin until after cardiac catheterization is performed. I would like to thank Dr. Garcias for allowing me to participate in care of this patient. Rakesh Ramos M.D. DR: LIANA JOB#: [id number] CC:
[2018-07-23 01:26] LABS: ALANINE AMINOTRANSFERASE 120 U/L (12-78); ALBUMIN 2.8 G/DL (3.4-5.0); ALBUMIN/GLOBULIN RATIO 0.7 (1.0-2.7); ALKALINE PHOSPHATASE 95 U/L (46-116); ASPARTATE AMINO TRANSFERASE 63 U/L (15-37); BILIRUBIN,TOTAL 1.4 MG/DL (0.2-1.0)
[2018-07-23 01:29] LABS: BILIRUBIN,DIRECT 0.8 MG/DL (0.0-0.3)
[2018-07-23 01:39] LABS: CREATINE KINASE 453 U/L (26-308)
[2018-07-23 04:00] VITALS: BP 140/76
[2018-07-23] MEDS: Nitroglycerin 2% oint pkt TOPIC SCH ×3 (07:40→17:58)
[2018-07-23] MEDS: NovoLOG Insulin Flexpen SUBQ SCH ×3 (07:43→16:30)
[2018-07-23 08:00] VITALS: BP 126/93
[2018-07-23] MEDS: Tamsulosin 0.4mg cap ORAL SCH ×2 (08:20→17:58)
[2018-07-23] MEDS: Aspirin Baby 81mg ORAL SCH (08:30)
[2018-07-23] MEDS: Metoprolol Succinate XL 100mg tab ORAL SCH ×2 (08:30→21:25)
[2018-07-23] MEDS: Heparin 5000 units/ml inj SUBQ SCH ×2 (08:37→21:23)
--- NOTE | 2018-07-23 08:48 | General Progress Note ---
Assessment/Plan Problem List: (1) Acute coronary syndromes ICD Codes: I24.9 - Acute ischemic heart disease, unspecified SNOMED: 755527143 (2) Diabetes ICD Codes: E11.9 - Type 2 diabetes mellitus without complications SNOMED: 90418454 (3) Rhabdomyolysis ICD Codes: M62.82 - Rhabdomyolysis SNOMED: 572803464 (4) Troponin level elevated ICD Codes: R74.8 - Abnormal levels of other serum enzymes SNOMED: 197284795, 323624307, 616946217 (5) Cholecystitis ICD Codes: K81.9 - Cholecystitis, unspecified SNOMED: 79177865 (6) Abdominal pain ICD Codes: R10.9 - Unspecified abdominal pain SNOMED: 82247294 Qualifiers: Qualified Codes: R10.84 - Generalized abdominal pain (7) Non-STEMI (non-ST elevated myocardial infarction) ICD Codes: I21.4 - Non-ST elevation (NSTEMI) myocardial infarction SNOMED: 636432858 Assessment/Plan elevated trop and ck total, echo reviewed, ekg old iwmi, US noted, continue cardiac meds, antibiotics, plan transfer for cardiac cath Subjective Constitutional: Reports: weakness HEENT: Reports: no symptoms Cardiovascular: Reports: chest pain Respiratory: Reports: no symptoms Gastrointestinal/Abdominal: Reports: abdominal pain Genitourinary: Reports: no symptoms Neurologic/Psychiatric: Reports: no symptoms Endocrine: Reports: no symptoms Hematologic/Lymphatic: Reports: no symptoms Allergies: Coded Allergies: No Known Allergies (Unverified , 01/03/18) Objective Last 24 Hour Vital Signs Date Time Temp Pulse Resp B/P (MAP) Pulse Ox O2 Delivery O2 Flow Rate FiO2 07/23/18 08:30 98 149/72 07/23/18 08:30 98 140/76 07/23/18 07:40 140/76 07/23/18 04:00 98.8 98 19 140/76 (97) 95 07/23/18 00:00 97.8 110 18 156/89 (111) 89 07/22/18 22:24 99.8 07/22/18 22:24 99.8 07/22/18 21:54 105 152/62 07/22/18 21:00 Room Air 07/22/18 20:00 99.8 105 18 152/62 (92) 95 07/22/18 18:00 100 07/22/18 17:32 157/78 07/22/18 16:00 98.2 87 18 152/78 (102) 94 07/22/18 13:13 99 07/22/18 12:13 132/80 07/22/18 12:03 97.3 76 17 132/80 (97) 98 07/22/18 09:00 Room Air Intake and Output 07/22/18 07/23/18 18:59 06:59 # Voids 2 Laboratory Tests 07/22/18 17:00: Total Creatine Kinase 426H, Creatine Kinase MB 5.7H, Creatine Kinase MB Relative Index 1.3, Troponin I 1.526H 07/23/18 00:55: Total Creatine Kinase 453H, Creatine Kinase MB 6.0H, Troponin I 0.569H, White Blood Count 13.0H, Red Blood Count 3.88L, Hemoglobin 12.1L, Hematocrit 35.6L, Mean Corpuscular Volume 92, Mean Corpuscular Hemoglobin 31.2H, Mean Corpuscular Hemoglobin Concent 34.0, Red Cell Distribution Width 14.0, Platelet Count 164, Mean Platelet Volume 5.7L, Neutrophils (%) (Auto) 73.4, Lymphocytes (%) (Auto) 12.7L, Monocytes (%) (Auto) 12.2H, Eosinophils (%) (Auto) 0.6, Basophils (%) ( Auto) 1.1, Activated Partial Thromboplast Time 32, Sodium Level 139, Potassium Level 3.5, Chloride Level 103, Carbon Dioxide Level 27, Anion Gap 9, Blood Urea Nitrogen 18, Creatinine 1.3, Estimat Glomerular Filtration Rate > 60, Glucose Level 172H, Calcium Level 8.5, Total Bilirubin 1.4H, Direct Bilirubin 0.8H, Aspartate Amino Transf (AST/SGOT) 63H, Alanine Aminotransferase (ALT/SGPT) 120H , Alkaline Phosphatase 95, Total Protein 6.8, Albumin 2.8L, Globulin 4.0, Albumin/Globulin Ratio 0.7L, Lipase 73 Height (Feet): 5 Height (Inches): 8.00 Weight (Pounds): 235 General Appearance: no apparent distress, obese EENT: normal ENT inspection Neck: normal alignment Cardiovascular: normal rate, regular rhythm Respiratory/Chest: lungs clear, normal breath sounds Abdomen: non tender Edema: no edema noted Arm (L), no edema noted Arm (R), no edema noted Leg (L), no edema noted Leg (R), no edema noted Pedal (L), no edema noted Pedal (R), no edema noted 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
[2018-07-23] MEDS: Morphine Sulfate 4mg/ml Inj (IV/IM USE ONLY) IVP PRN (11:40)
[2018-07-23 12:00] VITALS: BP 128/82
--- NOTE | 2018-07-23 12:29 | General Surgery Progress Note ---
General Surgery-Progress Note Subjective Additional Comments afebrile, HD stable, pain improved. no n/v/f/c. Objective Last 24 Hour Vital Signs Date Time Temp Pulse Resp B/P (MAP) Pulse Ox O2 Delivery O2 Flow Rate FiO2 07/23/18 10:01 Room Air 07/23/18 08:30 98 149/72 07/23/18 08:30 98 140/76 07/23/18 08:00 97.7 86 19 126/93 (104) 95 07/23/18 07:40 140/76 07/23/18 04:00 98.8 98 19 140/76 (97) 95 07/23/18 00:00 97.8 110 18 156/89 (111) 89 07/22/18 22:24 99.8 07/22/18 22:24 99.8 07/22/18 21:54 105 152/62 07/22/18 21:00 Room Air 07/22/18 20:00 99.8 105 18 152/62 (92) 95 07/22/18 18:00 100 07/22/18 17:32 157/78 07/22/18 16:00 98.2 87 18 152/78 (102) 94 07/22/18 13:13 99 I&O Intake and Output 07/22/18 07/23/18 19:00 07:00 # Voids 2 Drains: none Cardiovascular: RSR Respiratory: clear Abdomen: soft, flat, non-tender, present bowel sounds Extremities: no tenderness, no cyanosis Laboratory Tests Test 07/22/18 17:00 07/23/18 00:55 07/23/18 09:00 Total Creatine Kinase 426 U/L (26-308) H 453 U/L (26-308) H Creatine Kinase MB 5.7 NG/ML (0.0-3.6) H 6.0 NG/ML (0.0-3.6) H Creatine Kinase MB Relative Index 1.3 Troponin I 1.526 ng/mL (0.000-0.056) 0.569 ng/mL (0.000-0.056) White Blood Count 13.0 K/UL (4.8-10.8) H Red Blood Count 3.88 M/UL (4.70-6.10) L Hemoglobin 12.1 G/DL (14.2-18.0) L Hematocrit 35.6 % (42.0-52.0) L Mean Corpuscular Volume 92 FL (80-99) Mean Corpuscular Hemoglobin 31.2 PG (27.0-31.0) H Mean Corpuscular Hemoglobin Concent 34.0 G/DL (32.0-36.0) Red Cell Distribution Width 14.0 % (11.6-14.8) Platelet Count 164 K/UL (150-450) Mean Platelet Volume 5.7 FL (6.5-10.1) L Neutrophils (%) (Auto) 73.4 % (45.0-75.0) Lymphocytes (%) (Auto) 12.7 % (20.0-45.0) L Monocytes (%) (Auto) 12.2 % (1.0-10.0) H Eosinophils (%) (Auto) 0.6 % (0.0-3.0) Basophils (%) (Auto) 1.1 % (0.0-2.0) Activated Partial Thromboplast Time 32 SEC (23-33) 68 SEC (23-33) H Sodium Level 139 MMOL/L (136-145) Potassium Level 3.5 MMOL/L (3.5-5.1) Chloride Level 103 MMOL/L (98-107) Carbon Dioxide Level 27 MMOL/L (21-32) Anion Gap 9 mmol/L (5-15) Blood Urea Nitrogen 18 mg/dL (7-18) Creatinine 1.3 MG/DL (0.55-1.30) Estimat Glomerular Filtration Rate > 60 mL/min (>60) Glucose Level 172 MG/DL (74-106) H Calcium Level 8.5 MG/DL (8.5-10.1) Total Bilirubin 1.4 MG/DL (0.2-1.0) H Direct Bilirubin 0.8 MG/DL (0.0-0.3) H Aspartate Amino Transf (AST/SGOT) 63 U/L (15-37) H Alanine Aminotransferase (ALT/SGPT) 120 U/L (12-78) H Alkaline Phosphatase 95 U/L (46-116) Total Protein 6.8 G/DL (6.4-8.2) Albumin 2.8 G/DL (3.4-5.0) L Globulin 4.0 g/dL Albumin/Globulin Ratio 0.7 (1.0-2.7) L Lipase 73 U/L (73-393) Plan Problems: (1) Cholecystitis Assessment & Plan: acute cholecystitis tachycardic leukocytosis elevated lfts CT noted US noted exam improved today without tenderness. denies pain. wbc 13k labs ntoed troponin noted -npo -iv fluids -iv abx -need to cool down -appreciate cardiology input -trend labs -okay to transfer to [facility] for cath improving clinically with medical management. no further imaging needed at this time hold on surgery till cardiac cleared. if continues to improve with medical management can do electively thank you will follow with recs. Bjorn Sosa Jul 23, 2018 12:29
--- NOTE | 2018-07-23 14:42 | Diagnostic Imaging Report ---
Indication: Abdominal pain post meals Technique: IV administration 6 mCi 99m technetium Choletec. Images obtained over the liver. At 60 minutes, patient given 2 mg of morphine IV, and additional delayed images obtained 30 minutes after that Comparison: Reference made to ultrasound and CT scan dated 07/21/2018 Findings: There is prompt tracer uptake by the liver. Extrahepatic bile ducts are seen at approximately 16 minutes. Tracer seen in the duodenum at approximately 25 minutes. No uptake of tracer into the gallbladder is demonstrated. There is considerable tracer within the central intrahepatic ducts, with less striking visualization of the common bile duct. Impression: Nonvisualized gallbladder, highly suspicious for acute cholecystitis Although the common bile duct is patent, there is considerable stasis of tracer within the central intrahepatic bile ducts. Upon further review of the CT images, there is suggestion of a calculus in the upstream common bile duct or downstream common hepatic duct. Findings discussed by phone with Dr. Garcias and Dr. Sosa at the time of interpretation
--- NOTE | 2018-07-23 15:42 | Cardiology Report ---
APPROVED REPORT EXAM: Two-dimensional and M-mode echocardiogram with Doppler and color Doppler. INDICATION Troponin M-Mode DIMENSIONS IVSd1.4 (0.7-1.1cm)Left Atrium (MM)3.2 (1.6-4.0cm) LVDd4.8 (3.5-5.6cm)Aortic Root3.0 (2.0-3.7cm) PWd1.5 (0.7-1.1cm)Aortic Cusp Exc.1.8 (1.5-2.0cm) LVDs3.0 (2.5-4.0cm) PWs2.0 cm Technically difficult and limited study due to poor acoustic windows. Patient requested to terminate exam early. Study quality precludes accurate assessment of regional wall motion. Normal left ventricular chamber size, systolic function and wall motion. Left ventricular ejection fraction estimated to be 55 %. Mild left ventricular hypertrophy. Anterior Echo-free space, may be due to pericardial fat or effusion. All other cardiac chamber sizes are within normal limits. Focal aortic valve sclerosis with adequate cusp excursion. Thickened mitral valve leaflets with normal excursion. Mild mitral annulus and aortic root calcification. Pulmonic valve not well visualized. Normal tricuspid valve structure. Subcostal views not obtained. A color flow and spectral Doppler study was performed and revealed: There appears to be no aortic insufficiency. No mitral regurgitation. Left ventricular diastolic function could not be determined due to arrhythmia. No tricuspid regurgitation. Trace pulmonic regurgitation present.
[2018-07-23 16:00] VITALS: BP 130/81
--- NOTE | 2018-07-23 19:29 | Cardiology Progress Note ---
Assessment/Plan Assessment/Plan 1. Non-ST elevation myocardial infarction, troponin is now downtrending, no ischemia on 12-lead electrocardiogram, no wall motion abnormalities on 2-D echocardiography with LVEF approximately 60% to 65%. Awaiting transfer to [facility] for left heart catheterization and coronary angiography, transfer center has been reached, awaiting telemetry bed. In the meantime continue DAPT, metoprolol and high intensity statins. Will DC heparin gtt. Continue heparin SQ for DVT prophylaxis. 2. History of hypertension, continue amlodipine and metoprolol. 3. History of diabetes mellitus, uncontrolled with high hemoglobin A1c, hold metformin prior to cardiac cath. Subjective Subjective Sinus rhythm at rate of 83. Chest pain free. [facility] Transfer center contacted last night for transfer to the facility for [facility]. Objective Last 24 Hour Vital Signs Date Time Temp Pulse Resp B/P (MAP) Pulse Ox O2 Delivery O2 Flow Rate FiO2 07/23/18 18:00 83 07/23/18 17:58 130/81 07/23/18 16:00 97.5 83 19 130/81 (97) 95 07/23/18 14:35 140/76 07/23/18 12:10 97.7 07/23/18 12:00 97.2 92 19 128/82 (97) 95 07/23/18 10:01 Room Air 07/23/18 08:30 98 149/72 07/23/18 08:30 98 140/76 07/23/18 08:00 97.7 86 19 126/93 (104) 95 07/23/18 07:40 140/76 07/23/18 04:00 98.8 98 19 140/76 (97) 95 07/23/18 00:00 97.8 110 18 156/89 (111) 89 07/22/18 22:24 99.8 07/22/18 22:24 99.8 07/22/18 21:54 105 152/62 07/22/18 21:00 Room Air 07/22/18 20:00 99.8 105 18 152/62 (92) 95 Intake and Output 07/22/18 07/23/18 19:00 07:00 # Voids 2 2D Echo: LVEF 55%,No wall motion abnormalities,Diastolic fxn not available, Mild LVH Laboratory Tests Test 07/23/18 00:55 07/23/18 09:00 White Blood Count 13.0 K/UL (4.8-10.8) H Red Blood Count 3.88 M/UL (4.70-6.10) L Hemoglobin 12.1 G/DL (14.2-18.0) L Hematocrit 35.6 % (42.0-52.0) L Mean Corpuscular Volume 92 FL (80-99) Mean Corpuscular Hemoglobin 31.2 PG (27.0-31.0) H Mean Corpuscular Hemoglobin Concent 34.0 G/DL (32.0-36.0) Red Cell Distribution Width 14.0 % (11.6-14.8) Platelet Count 164 K/UL (150-450) Mean Platelet Volume 5.7 FL (6.5-10.1) L Neutrophils (%) (Auto) 73.4 % (45.0-75.0) Lymphocytes (%) (Auto) 12.7 % (20.0-45.0) L Monocytes (%) (Auto) 12.2 % (1.0-10.0) H Eosinophils (%) (Auto) 0.6 % (0.0-3.0) Basophils (%) (Auto) 1.1 % (0.0-2.0) Activated Partial Thromboplast Time 32 SEC (23-33) 68 SEC (23-33) H Sodium Level 139 MMOL/L (136-145) Potassium Level 3.5 MMOL/L (3.5-5.1) Chloride Level 103 MMOL/L (98-107) Carbon Dioxide Level 27 MMOL/L (21-32) Anion Gap 9 mmol/L (5-15) Blood Urea Nitrogen 18 mg/dL (7-18) Creatinine 1.3 MG/DL (0.55-1.30) Estimat Glomerular Filtration Rate > 60 mL/min (>60) Glucose Level 172 MG/DL (74-106) H Calcium Level 8.5 MG/DL (8.5-10.1) Total Bilirubin 1.4 MG/DL (0.2-1.0) H Direct Bilirubin 0.8 MG/DL (0.0-0.3) H Aspartate Amino Transf (AST/SGOT) 63 U/L (15-37) H Alanine Aminotransferase (ALT/SGPT) 120 U/L (12-78) H Alkaline Phosphatase 95 U/L (46-116) Total Creatine Kinase 453 U/L (26-308) H Creatine Kinase MB 6.0 NG/ML (0.0-3.6) H Troponin I 0.569 ng/mL (0.000-0.056) Total Protein 6.8 G/DL (6.4-8.2) Albumin 2.8 G/DL (3.4-5.0) L Globulin 4.0 g/dL Albumin/Globulin Ratio 0.7 (1.0-2.7) L Lipase 73 U/L (73-393) Microbiology Date/Time Source Procedure Growth Status 07/21/18 11:07 Blood Blood Culture - Preliminary NO GROWTH AFTER 24 HOURS Resulted 07/21/18 11:07 Blood Blood Culture - Preliminary NO GROWTH AFTER 24 HOURS Resulted Objective HEENT: Atraumatic and normocephalic. Anicteric. Pupils are equal, round, and reactive to light and accommodation. Extraocular muscles are intact. NECK: JVP is less than 5 cm. No carotid bruits. Carotid upstrokes 2+ bilaterally. CARDIOVASCULAR: Normal S1, S2. Regular rate and rhythm. No murmurs, gallops, or rubs. PMI is at fourth intercostal space in the midclavicular line. LUNGS: Clear to auscultation bilaterally. ABDOMEN: Soft, nontender, and nondistended. No hepatosplenomegaly. Positive bowel sounds. EXTREMITIES: No evidence of edema, clubbing, or cyanosis. Rakesh Ramos MD Jul 23, 2018 19:29
[2018-07-23 20:00] VITALS: BP 125/65
[2018-07-23] MEDS: Atorvastatin 80mg tab ORAL SCH (21:24)
[2018-07-23] MEDS: Cyclobenzaprine 10mg Tab ORAL SCH (21:25)
[2018-07-23] MEDS: HYDROmorphone 1mg/ml Carpuject IVP PRN (22:13)
[2018-07-24] VITALS: BP 145/74
[2018-07-24] MEDS: Piperacillin/Tazobactam 3.375 GM in NS 110 ML IVPB SCH ×4 (00:53→23:44)
[2018-07-24 04:00] VITALS: BP 145/75
[2018-07-24] MEDS: Nitroglycerin 2% oint pkt TOPIC SCH ×3 (06:05→17:00)
[2018-07-24] MEDS: NovoLOG Insulin Flexpen SUBQ SCH ×3 (06:08→16:30)
[2018-07-24] MEDS: Heparin 5000 units/ml inj SUBQ SCH ×3 (06:08→20:26)
[2018-07-24 08:00] VITALS: BP 133/69
[2018-07-24] MEDS: Metoprolol Succinate XL 100mg tab ORAL SCH ×2 (08:17→20:36)
[2018-07-24] MEDS: Tamsulosin 0.4mg cap ORAL SCH ×2 (08:18→17:00)
[2018-07-24] MEDS: Aspirin Baby 81mg ORAL SCH (08:18)
[2018-07-24 09:00] LABS: EOSINOPHILS % (AUTO) 3.5 % (0.0-3.0); HEMATOCRIT 34.1 % (42.0-52.0); HEMOGLOBIN 11.4 G/DL (14.2-18.0); LYMPHOCYTES % (AUTO) 20.1 % (20.0-45.0); MEAN CORPUSCULAR VOLUME 93 FL (80-99); MONOCYTES % (AUTO) 9.8 % (1.0-10.0); NEUTROPHILS % (AUTO) 65.7 % (45.0-75.0); PLATELET COUNT 181 K/UL (150-450); RED BLOOD COUNT 3.66 M/UL (4.70-6.10); RED CELL DISTRIBUTION WIDTH 13.8 % (11.6-14.8); WHITE BLOOD COUNT 8.5 K/UL (4.8-10.8)
[2018-07-24 09:24] LABS: ALANINE AMINOTRANSFERASE 82 U/L (12-78); ALBUMIN 2.5 G/DL (3.4-5.0); ALBUMIN/GLOBULIN RATIO 0.6 (1.0-2.7); ALKALINE PHOSPHATASE 86 U/L (46-116); ANION GAP 6 mmol/L (5-15); ASPARTATE AMINO TRANSFERASE 38 U/L (15-37); BILIRUBIN,TOTAL 0.8 MG/DL (0.2-1.0); BLOOD UREA NITROGEN 16 mg/dL (7-18); CALCIUM 8.4 MG/DL (8.5-10.1); CARBON DIOXIDE 30 MMOL/L (21-32); CHLORIDE 104 MMOL/L (98-107); CREATININE 1.2 MG/DL (0.55-1.30); POTASSIUM 3.7 MMOL/L (3.5-5.1); SODIUM 140 MMOL/L (136-145)
[2018-07-24] MEDS: Morphine Sulfate 4mg/ml Inj (IV/IM USE ONLY) IVP PRN (10:01)
--- NOTE | 2018-07-24 10:05 | General Progress Note ---
Assessment/Plan Problem List: (1) Acute coronary syndromes ICD Codes: I24.9 - Acute ischemic heart disease, unspecified SNOMED: 240279888 (2) Diabetes ICD Codes: E11.9 - Type 2 diabetes mellitus without complications SNOMED: 83969441 (3) Rhabdomyolysis ICD Codes: M62.82 - Rhabdomyolysis SNOMED: 931886071 (4) Troponin level elevated ICD Codes: R74.8 - Abnormal levels of other serum enzymes SNOMED: 931593825, 957168328, 922095829 (5) Cholecystitis ICD Codes: K81.9 - Cholecystitis, unspecified SNOMED: 42147830 (6) Abdominal pain ICD Codes: R10.9 - Unspecified abdominal pain SNOMED: 75838704 Qualifiers: Qualified Codes: R10.84 - Generalized abdominal pain (7) Non-STEMI (non-ST elevated myocardial infarction) ICD Codes: I21.4 - Non-ST elevation (NSTEMI) myocardial infarction SNOMED: 789748962 Assessment/Plan elevated trop and ck total, echo reviewed, ekg old iwmi, US noted, continue cardiac meds, antibiotics, plan transfer for cardiac cath Subjective Constitutional: Reports: weakness HEENT: Reports: no symptoms Cardiovascular: Reports: no symptoms Respiratory: Reports: no symptoms Gastrointestinal/Abdominal: Reports: abdominal pain Genitourinary: Reports: no symptoms Neurologic/Psychiatric: Reports: no symptoms Endocrine: Reports: no symptoms Hematologic/Lymphatic: Reports: no symptoms Allergies: Coded Allergies: No Known Allergies (Unverified , 01/03/18) Objective Last 24 Hour Vital Signs Date Time Temp Pulse Resp B/P (MAP) Pulse Ox O2 Delivery O2 Flow Rate FiO2 07/24/18 09:00 Room Air 07/24/18 08:18 82 133/69 07/24/18 08:17 82 133/69 07/24/18 08:00 97.2 82 18 133/69 (90) 94 07/24/18 06:05 145/75 07/24/18 04:00 98.2 81 18 145/75 (98) 94 07/24/18 04:00 90 07/24/18 00:00 87 07/24/18 00:00 98.5 89 19 145/74 (97) 94 07/23/18 21:25 85 125/65 07/23/18 21:00 Room Air 07/23/18 20:00 98.4 88 18 125/65 (85) 95 07/23/18 20:00 85 07/23/18 18:00 83 07/23/18 17:58 130/81 07/23/18 16:00 97.5 83 19 130/81 (97) 95 07/23/18 14:35 140/76 07/23/18 12:10 97.7 07/23/18 12:00 97.2 92 19 128/82 (97) 95 Intake and Output 07/23/18 07/24/18 18:59 06:59 Intake Total 726.0 ml Output Total 500 ml 600 ml Balance -500 ml 126.0 ml Intake IV Total 726.0 ml Output Urine Total 500 ml 600 ml # Voids 2 2 Laboratory Tests 07/24/18 08:50: White Blood Count 8.5, Red Blood Count 3.66L, Hemoglobin 11.4L, Hematocrit 34.1L , Mean Corpuscular Volume 93, Mean Corpuscular Hemoglobin 31.2H, Mean Corpuscular Hemoglobin Concent 33.5, Red Cell Distribution Width 13.8, Platelet Count 181, Mean Platelet Volume 6.1L, Neutrophils (%) (Auto) 65.7, Lymphocytes ( %) (Auto) 20.1, Monocytes (%) (Auto) 9.8, Eosinophils (%) (Auto) 3.5H, Basophils (%) (Auto) 1.0, Sodium Level 140, Potassium Level 3.7, Chloride Level 104, Carbon Dioxide Level 30, Anion Gap 6, Blood Urea Nitrogen 16, Creatinine 1.2, Estimat Glomerular Filtration Rate > 60, Glucose Level 157H, Calcium Level 8.4L, Total Bilirubin 0.8, Aspartate Amino Transf (AST/SGOT) 38H, Alanine Aminotransferase (ALT/SGPT) 82H, Alkaline Phosphatase 86, Total Protein 6.5, Albumin 2.5L, Globulin 4.0, Albumin/Globulin Ratio 0.6L Height (Feet): 5 Height (Inches): 8.00 Weight (Pounds): 235 General Appearance: obese EENT: normal ENT inspection Neck: normal alignment Cardiovascular: normal rate, regular rhythm Respiratory/Chest: lungs clear Abdomen: soft, tender Edema: no edema noted Arm (L), no edema noted Arm (R), no edema noted Leg (L), no edema noted Leg (R), no edema noted Pedal (L), no edema noted Pedal (R), no edema noted Generalized Souleymane Garcias MD Jul 24, 2018 10:05
[2018-07-24 12:00] VITALS: BP 161/78
--- NOTE | 2018-07-24 12:52 | General Surgery Progress Note ---
General Surgery-Progress Note Subjective Symptoms: improved Additional Comments doing well. pain improving. no n/v/f/c. HIDA noted. labs noted Objective Last 24 Hour Vital Signs Date Time Temp Pulse Resp B/P (MAP) Pulse Ox O2 Delivery O2 Flow Rate FiO2 07/24/18 10:31 97.2 07/24/18 09:00 Room Air 07/24/18 08:18 82 133/69 07/24/18 08:17 82 133/69 07/24/18 08:00 97.2 82 18 133/69 (90) 94 07/24/18 08:00 71 07/24/18 06:05 145/75 07/24/18 04:00 98.2 81 18 145/75 (98) 94 07/24/18 04:00 90 07/24/18 00:00 87 07/24/18 00:00 98.5 89 19 145/74 (97) 94 07/23/18 21:25 85 125/65 07/23/18 21:00 Room Air 07/23/18 20:00 98.4 88 18 125/65 (85) 95 07/23/18 20:00 85 07/23/18 18:00 83 07/23/18 17:58 130/81 07/23/18 16:00 97.5 83 19 130/81 (97) 95 07/23/18 14:35 140/76 I&O Intake and Output 07/23/18 07/24/18 18:59 06:59 Intake Total 726.0 ml Output Total 500 ml 600 ml Balance -500 ml 126.0 ml Intake IV Total 726.0 ml Output Urine Total 500 ml 600 ml # Voids 2 2 Drains: none Cardiovascular: RSR Respiratory: clear Abdomen: soft, distended, tenderness, present bowel sounds Extremities: no cyanosis Laboratory Tests Test 07/24/18 08:50 White Blood Count 8.5 K/UL (4.8-10.8) Red Blood Count 3.66 M/UL (4.70-6.10) L Hemoglobin 11.4 G/DL (14.2-18.0) L Hematocrit 34.1 % (42.0-52.0) L Mean Corpuscular Volume 93 FL (80-99) Mean Corpuscular Hemoglobin 31.2 PG (27.0-31.0) H Mean Corpuscular Hemoglobin Concent 33.5 G/DL (32.0-36.0) Red Cell Distribution Width 13.8 % (11.6-14.8) Platelet Count 181 K/UL (150-450) Mean Platelet Volume 6.1 FL (6.5-10.1) L Neutrophils (%) (Auto) 65.7 % (45.0-75.0) Lymphocytes (%) (Auto) 20.1 % (20.0-45.0) Monocytes (%) (Auto) 9.8 % (1.0-10.0) Eosinophils (%) (Auto) 3.5 % (0.0-3.0) H Basophils (%) (Auto) 1.0 % (0.0-2.0) Sodium Level 140 MMOL/L (136-145) Potassium Level 3.7 MMOL/L (3.5-5.1) Chloride Level 104 MMOL/L (98-107) Carbon Dioxide Level 30 MMOL/L (21-32) Anion Gap 6 mmol/L (5-15) Blood Urea Nitrogen 16 mg/dL (7-18) Creatinine 1.2 MG/DL (0.55-1.30) Estimat Glomerular Filtration Rate > 60 mL/min (>60) Glucose Level 157 MG/DL (74-106) H Calcium Level 8.4 MG/DL (8.5-10.1) L Total Bilirubin 0.8 MG/DL (0.2-1.0) Aspartate Amino Transf (AST/SGOT) 38 U/L (15-37) H Alanine Aminotransferase (ALT/SGPT) 82 U/L (12-78) H Alkaline Phosphatase 86 U/L (46-116) Total Protein 6.5 G/DL (6.4-8.2) Albumin 2.5 G/DL (3.4-5.0) L Globulin 4.0 g/dL Albumin/Globulin Ratio 0.6 (1.0-2.7) L Plan Problems: (1) Cholecystitis Assessment & Plan: acute cholecystitis tachycardic leukocytosis elevated [facility] CT noted US noted HIDA noted exam improved today with minimal tenderness. denies pain. wbc nml labs noted troponin noted -npo -iv fluids -iv abx -need to cool down -appreciate cardiology input -trend labs -okay to transfer to [facility] for cath improving clinically with medical management. no further imaging needed at this time hold on surgery till cardiac cleared. if continues to improve with medical management can do electively. thank you will follow with recs. Bjorn Sosa Jul 24, 2018 12:52
[2018-07-24 16:00] VITALS: BP 153/80
[2018-07-24 20:00] VITALS: BP 151/87
[2018-07-24] MEDS: Atorvastatin 80mg tab ORAL SCH (20:23)
[2018-07-24] MEDS: Cyclobenzaprine 10mg Tab ORAL SCH (20:24)
[2018-07-24] MEDS: HYDROmorphone 1mg/ml Carpuject IVP PRN (22:49)
[2018-07-25] VITALS (7 sets, daily range): BP systolic 118–145; BP diastolic 63–79
[2018-07-25] MEDS: Nitroglycerin 2% oint pkt TOPIC SCH ×3 (06:20→18:03)
[2018-07-25] MEDS: Heparin 5000 units/ml inj SUBQ SCH ×3 (06:21→21:03)
[2018-07-25] MEDS: NovoLOG Insulin Flexpen SUBQ SCH ×3 (06:30→16:30)
[2018-07-25 09:14] LABS: BASOPHILS % (AUTO) 1.3 % (0.0-2.0); EOSINOPHILS % (AUTO) 4.3 % (0.0-3.0); HEMATOCRIT 37.6 % (42.0-52.0); HEMOGLOBIN 12.4 G/DL (14.2-18.0); MEAN CORPUSCULAR VOLUME 93 FL (80-99); MONOCYTES % (AUTO) 9.3 % (1.0-10.0); NEUTROPHILS % (AUTO) 66.1 % (45.0-75.0); PLATELET COUNT 223 K/UL (150-450); RED BLOOD COUNT 4.04 M/UL (4.70-6.10)
[2018-07-25] MEDS: Metoprolol Succinate XL 100mg tab ORAL SCH ×2 (09:28→21:03)
[2018-07-25] MEDS: Tamsulosin 0.4mg cap ORAL SCH ×2 (09:29→18:02)
[2018-07-25] MEDS: Aspirin Baby 81mg ORAL SCH (09:29)
[2018-07-25 09:38] LABS: ALANINE AMINOTRANSFERASE 78 U/L (12-78); ALBUMIN 2.6 G/DL (3.4-5.0); ALBUMIN/GLOBULIN RATIO 0.6 (1.0-2.7); ALKALINE PHOSPHATASE 101 U/L (46-116); ANION GAP 7 mmol/L (5-15); ASPARTATE AMINO TRANSFERASE 42 U/L (15-37); BILIRUBIN,TOTAL 0.8 MG/DL (0.2-1.0); BLOOD UREA NITROGEN 12 mg/dL (7-18); CALCIUM 8.6 MG/DL (8.5-10.1); CARBON DIOXIDE 29 MMOL/L (21-32); CHLORIDE 103 MMOL/L (98-107); CREATININE 1.1 MG/DL (0.55-1.30); POTASSIUM 3.9 MMOL/L (3.5-5.1); SODIUM 139 MMOL/L (136-145)
[2018-07-25] MEDS: Piperacillin/Tazobactam 3.375 GM in NS 110 ML IVPB SCH ×2 (09:38→18:03)
--- NOTE | 2018-07-25 10:21 | General Surgery Progress Note ---
General Surgery-Progress Note Subjective Additional Comments no acute events. stable. labs noted. improving Objective Last 24 Hour Vital Signs Date Time Temp Pulse Resp B/P (MAP) Pulse Ox O2 Delivery O2 Flow Rate FiO2 07/25/18 09:29 75 135/78 07/25/18 09:28 75 135/78 07/25/18 06:20 118/63 07/25/18 04:00 70 07/25/18 04:00 97.7 70 20 129/63 (85) 07/25/18 00:00 78 07/25/18 00:00 97.7 81 18 118/63 (81) 92 07/24/18 21:00 Room Air 07/24/18 20:36 74 153/80 07/24/18 20:00 98.1 77 20 151/87 (108) 96 07/24/18 17:00 153/80 07/24/18 16:00 97.9 77 18 153/80 (104) 99 07/24/18 16:00 74 07/24/18 12:58 161/78 07/24/18 12:00 81 07/24/18 12:00 97.9 18 161/78 (105) 76 07/24/18 10:31 97.2 I&O Intake and Output 07/24/18 07/25/18 19:00 07:00 Intake Total 100 ml Output Total 1050 ml Balance -950 ml Intake Oral 100 ml Output Urine Total 1050 ml # Voids 2 Drains: none Cardiovascular: RSR Respiratory: clear Abdomen: soft, flat, non-tender, present bowel sounds Extremities: no tenderness, no cyanosis Laboratory Tests Test 07/25/18 08:25 White Blood Count 8.0 K/UL (4.8-10.8) Red Blood Count 4.04 M/UL (4.70-6.10) L Hemoglobin 12.4 G/DL (14.2-18.0) L Hematocrit 37.6 % (42.0-52.0) L Mean Corpuscular Volume 93 FL (80-99) Mean Corpuscular Hemoglobin 30.6 PG (27.0-31.0) Mean Corpuscular Hemoglobin Concent 32.9 G/DL (32.0-36.0) Red Cell Distribution Width 14.0 % (11.6-14.8) Platelet Count 223 K/UL (150-450) Mean Platelet Volume 5.6 FL (6.5-10.1) L Neutrophils (%) (Auto) 66.1 % (45.0-75.0) Lymphocytes (%) (Auto) 19.0 % (20.0-45.0) L Monocytes (%) (Auto) 9.3 % (1.0-10.0) Eosinophils (%) (Auto) 4.3 % (0.0-3.0) H Basophils (%) (Auto) 1.3 % (0.0-2.0) Sodium Level 139 MMOL/L (136-145) Potassium Level 3.9 MMOL/L (3.5-5.1) Chloride Level 103 MMOL/L (98-107) Carbon Dioxide Level 29 MMOL/L (21-32) Anion Gap 7 mmol/L (5-15) Blood Urea Nitrogen 12 mg/dL (7-18) Creatinine 1.1 MG/DL (0.55-1.30) Estimat Glomerular Filtration Rate > 60 mL/min (>60) Glucose Level 155 MG/DL (74-106) H Calcium Level 8.6 MG/DL (8.5-10.1) Total Bilirubin 0.8 MG/DL (0.2-1.0) Aspartate Amino Transf (AST/SGOT) 42 U/L (15-37) H Alanine Aminotransferase (ALT/SGPT) 78 U/L (12-78) Alkaline Phosphatase 101 U/L (46-116) Total Protein 6.9 G/DL (6.4-8.2) Albumin 2.6 G/DL (3.4-5.0) L Globulin 4.3 g/dL Albumin/Globulin Ratio 0.6 (1.0-2.7) L Plan Problems: (1) Cholecystitis Assessment & Plan: acute cholecystitis tachycardic leukocytosis elevated [facility] CT noted US noted HIDA noted exam improved today with minimal tenderness. denies pain. wbc nml labs noted troponin noted -npo -iv fluids -iv abx -need to cool down -appreciate cardiology input -trend labs -okay to transfer to [facility] for cath improving clinically with medical management. no further imaging needed at this time hold on surgery till cardiac cleared. if continues to improve with medical management can do electively. thank you will follow with recs. Bjorn Sosa Jul 25, 2018 10:21
--- NOTE | 2018-07-25 15:43 | General Progress Note ---
Assessment/Plan Problem List: (1) Acute coronary syndromes ICD Codes: I24.9 - Acute ischemic heart disease, unspecified SNOMED: 932645988 (2) Diabetes ICD Codes: E11.9 - Type 2 diabetes mellitus without complications SNOMED: 02693934 (3) Rhabdomyolysis ICD Codes: M62.82 - Rhabdomyolysis SNOMED: 101838414 (4) Troponin level elevated ICD Codes: R74.8 - Abnormal levels of other serum enzymes SNOMED: 659252630, 454290173, 031182317 (5) Cholecystitis ICD Codes: K81.9 - Cholecystitis, unspecified SNOMED: 40429847 (6) Abdominal pain ICD Codes: R10.9 - Unspecified abdominal pain SNOMED: 89917899 Qualifiers: Qualified Codes: R10.84 - Generalized abdominal pain (7) Non-STEMI (non-ST elevated myocardial infarction) ICD Codes: I21.4 - Non-ST elevation (NSTEMI) myocardial infarction SNOMED: 112230515 Assessment/Plan elevated trop and ck total, echo reviewed, ekg old iwmi, US noted, continue cardiac meds, antibiotics, plan transfer for cardiac cath low aglu 1/2 am iv increased, start clears Subjective Constitutional: Reports: weakness HEENT: Reports: no symptoms Cardiovascular: Reports: no symptoms Respiratory: Reports: no symptoms Gastrointestinal/Abdominal: Reports: abdominal pain Genitourinary: Reports: no symptoms Neurologic/Psychiatric: Reports: no symptoms Endocrine: Reports: no symptoms Hematologic/Lymphatic: Reports: no symptoms Allergies: Coded Allergies: No Known Allergies (Unverified , 01/03/18) Objective Last 24 Hour Vital Signs Date Time Temp Pulse Resp B/P (MAP) Pulse Ox O2 Delivery O2 Flow Rate FiO2 07/25/18 13:32 140/71 07/25/18 12:00 97.8 68 20 140/71 (94) 96 07/25/18 12:00 69 07/25/18 09:29 75 135/78 07/25/18 09:28 75 135/78 07/25/18 09:00 Room Air 07/25/18 08:00 73 07/25/18 08:00 98.1 75 20 135/78 (97) 96 07/25/18 06:20 118/63 07/25/18 04:00 70 07/25/18 04:00 97.7 70 20 129/63 (85) 07/25/18 00:00 78 07/25/18 00:00 97.7 81 18 118/63 (81) 92 07/24/18 21:00 Room Air 07/24/18 20:36 74 153/80 07/24/18 20:00 98.1 77 20 151/87 (108) 96 07/24/18 17:00 153/80 07/24/18 16:00 97.9 77 18 153/80 (104) 99 07/24/18 16:00 74 Intake and Output 07/24/18 07/25/18 18:59 06:59 Intake Total 50 ml 100 ml Output Total 1050 ml Balance 50 ml -950 ml Intake Oral 100 ml IV Total 50 ml Output Urine Total 1050 ml # Voids 2 Laboratory Tests 07/25/18 08:25: White Blood Count 8.0, Red Blood Count 4.04L, Hemoglobin 12.4L, Hematocrit 37.6L , Mean Corpuscular Volume 93, Mean Corpuscular Hemoglobin 30.6, Mean Corpuscular Hemoglobin Concent 32.9, Red Cell Distribution Width 14.0, Platelet Count 223, Mean Platelet Volume 5.6L, Neutrophils (%) (Auto) 66.1, Lymphocytes ( %) (Auto) 19.0L, Monocytes (%) (Auto) 9.3, Eosinophils (%) (Auto) 4.3H, Basophils (%) (Auto) 1.3, Sodium Level 139, Potassium Level 3.9, Chloride Level 103, Carbon Dioxide Level 29, Anion Gap 7, Blood Urea Nitrogen 12, Creatinine 1.1, Estimat Glomerular Filtration Rate > 60, Glucose Level 155H, Calcium Level 8.6, Total Bilirubin 0.8, Aspartate Amino Transf (AST/SGOT) 42H, Alanine Aminotransferase (ALT/SGPT) 78, Alkaline Phosphatase 101, Total Protein 6.9, Albumin 2.6L, Globulin 4.3, Albumin/Globulin Ratio 0.6L Height (Feet): 5 Height (Inches): 8.00 Weight (Pounds): 234 General Appearance: no apparent distress, obese EENT: normal ENT inspection Neck: normal alignment, supple Cardiovascular: normal rate, regular rhythm Respiratory/Chest: lungs clear Abdomen: non tender, soft Edema: no edema noted Arm (L), no edema noted Arm (R), no edema noted Leg (L), no edema noted Leg (R), no edema noted Pedal (L), no edema noted Pedal (R), no edema noted Generalized Neurologic: clinic assistant II-XII grossly normal Souleymane Garcias MD Jul 25, 2018 15:43
[2018-07-25] MEDS: Atorvastatin 80mg tab ORAL SCH (21:02)
[2018-07-25] MEDS: Cyclobenzaprine 10mg Tab ORAL SCH (21:02)
--- NOTE | 2018-07-25 21:43 | Cardiology Progress Note ---
Assessment/Plan Assessment/Plan 1. Non-ST elevation myocardial infarction, troponin is now downtrending, no ischemia on 12-lead electrocardiogram, no wall motion abnormalities on 2-D echocardiography with LVEF approximately 60% to 65%. Bed is now available for [facility] for left heart catheterization and coronary angiography, continue DAPT, metoprolol and atorvastatin. 2. History of hypertension, continue amlodipine and metoprolol. 3. History of diabetes mellitus, uncontrolled with high hemoglobin A1c, hold metformin prior to cardiac cath. Subjective Subjective Sinus rhythm at rate of 78. Chest pain free. Awaiting transfer to [facility] Objective Last 24 Hour Vital Signs Date Time Temp Pulse Resp B/P (MAP) Pulse Ox O2 Delivery O2 Flow Rate FiO2 07/25/18 21:03 78 142/71 07/25/18 18:03 140/71 07/25/18 16:00 72 07/25/18 16:00 97.3 76 20 145/79 (101) 95 07/25/18 13:32 140/71 07/25/18 12:00 97.8 68 20 140/71 (94) 96 07/25/18 12:00 69 07/25/18 09:29 75 135/78 07/25/18 09:28 75 135/78 07/25/18 09:00 Room Air 07/25/18 08:00 73 07/25/18 08:00 98.1 75 20 135/78 (97) 96 07/25/18 06:20 118/63 07/25/18 04:00 70 07/25/18 04:00 97.7 70 20 129/63 (85) 07/25/18 00:00 78 07/25/18 00:00 97.7 81 18 118/63 (81) 92 Intake and Output 07/24/18 07/25/18 19:00 07:00 Intake Total 100 ml Output Total 1050 ml Balance -950 ml Intake Oral 100 ml Output Urine Total 1050 ml # Voids 2 2D Echo: LVEF 55%,No wall motion abnormalities,Diastolic fxn not available, Mild LV Laboratory Tests Test 07/25/18 08:25 White Blood Count 8.0 K/UL (4.8-10.8) Red Blood Count 4.04 M/UL (4.70-6.10) L Hemoglobin 12.4 G/DL (14.2-18.0) L Hematocrit 37.6 % (42.0-52.0) L Mean Corpuscular Volume 93 FL (80-99) Mean Corpuscular Hemoglobin 30.6 PG (27.0-31.0) Mean Corpuscular Hemoglobin Concent 32.9 G/DL (32.0-36.0) Red Cell Distribution Width 14.0 % (11.6-14.8) Platelet Count 223 K/UL (150-450) Mean Platelet Volume 5.6 FL (6.5-10.1) L Neutrophils (%) (Auto) 66.1 % (45.0-75.0) Lymphocytes (%) (Auto) 19.0 % (20.0-45.0) L Monocytes (%) (Auto) 9.3 % (1.0-10.0) Eosinophils (%) (Auto) 4.3 % (0.0-3.0) H Basophils (%) (Auto) 1.3 % (0.0-2.0) Sodium Level 139 MMOL/L (136-145) Potassium Level 3.9 MMOL/L (3.5-5.1) Chloride Level 103 MMOL/L (98-107) Carbon Dioxide Level 29 MMOL/L (21-32) Anion Gap 7 mmol/L (5-15) Blood Urea Nitrogen 12 mg/dL (7-18) Creatinine 1.1 MG/DL (0.55-1.30) Estimat Glomerular Filtration Rate > 60 mL/min (>60) Glucose Level 155 MG/DL (74-106) H Calcium Level 8.6 MG/DL (8.5-10.1) Total Bilirubin 0.8 MG/DL (0.2-1.0) Aspartate Amino Transf (AST/SGOT) 42 U/L (15-37) H Alanine Aminotransferase (ALT/SGPT) 78 U/L (12-78) Alkaline Phosphatase 101 U/L (46-116) Total Protein 6.9 G/DL (6.4-8.2) Albumin 2.6 G/DL (3.4-5.0) L Globulin 4.3 g/dL Albumin/Globulin Ratio 0.6 (1.0-2.7) L Objective HEENT: Atraumatic and normocephalic. Anicteric. Pupils are equal, round, and reactive to light and accommodation. Extraocular muscles are intact. NECK: JVP is less than 5 cm. No carotid bruits. Carotid upstrokes 2+ bilaterally. CARDIOVASCULAR: Normal S1, S2. Regular rate and rhythm. No murmurs, gallops, or rubs. PMI is at fourth intercostal space in the midclavicular line. LUNGS: Clear to auscultation bilaterally. ABDOMEN: Soft, nontender, and nondistended. No hepatosplenomegaly. Positive bowel sounds. EXTREMITIES: No evidence of edema, clubbing, or cyanosis. Rakesh Ramos MD Jul 25, 2018 21:43
[2018-07-25] MEDS ORDERED: AMLODIPINE BES2.5 MG ORAL (22:09)
[2018-07-25] MEDS ORDERED: ACETAMINOPHEN325 M1 ORAL (22:09)
[2018-07-25] MEDS ORDERED: LIPITOR80 MG ORAL (22:10)
[2018-07-25] MEDS ORDERED: ASPIRIN81 MG ORAL (22:10)
[2018-07-25] MEDS ORDERED: CYCLOBENZAPRINE10 MG ORAL (22:11)
[2018-07-25] MEDS ORDERED: DEXTROSE 5% IV (22:13)
[2018-07-25] MEDS ORDERED: [UNRECOGNIZED DRUG - OTHER] IV (22:13)
[2018-07-25] MEDS ORDERED: FAMOTIDINE20 MG/2 ML IVP (22:14)
[2018-07-25] MEDS ORDERED: HEPARIN SO5000 UNIT2 SUBQ (22:14)
[2018-07-25] MEDS ORDERED: HYDROMORPH0.5 MG/0.5 IVP (22:17)
[2018-07-25] MEDS ORDERED: DILAUDID1 MG/M1 IVP (22:19)
[2018-07-25] MEDS ORDERED: NOVOLOG100 UNITS1 SUBQ (22:20)
[2018-07-25] MEDS ORDERED: MILK OF MA400 MG/51 ORAL (22:21)
[2018-07-25] MEDS ORDERED: LORAZEPAM0.5 MG IVP (22:21)
[2018-07-25] MEDS ORDERED: METOPROLOL SUC100 MG ORAL (22:22)
[2018-07-25] MEDS ORDERED: MORPHINE 22 MG/1 ML IVP (22:22)
[2018-07-25] MEDS ORDERED: NITROSTAT0.4 M2 SL (22:24)
[2018-07-25] MEDS ORDERED: NITRO-BID1 GM TOPIC (22:24)
[2018-07-25] MEDS ORDERED: ZOFRAN 4 MG4 MG/2 ML IVP (22:25)
[2018-07-25] MEDS ORDERED: ZOSYN 3.373.375 GM/1 IVPB (22:26)
[2018-07-25] MEDS ORDERED: TAMSULOSIN HCL0.4 MG ORAL (22:26)
[2018-07-25] MEDS ORDERED: ZOLPIDEM TARTRAT5 MG ORAL (22:27)
--- NOTE | 2018-07-26 12:47 | Discharge Summary ---
Discharge Summary Discharge Summary _ DATE OF ADMISSION: July 21, 2018 DATE OF DISCHARGE: July 25, 2018 DISCHARGED BY: Dr. Souleymane Garcias CONSULTANTS: Dr. Rakesh Sosa BRIEF HOSPITAL COURSE: Patient is a 68-year-old gentleman, with history of diabetes, coronary artery disease and osteoarthritis. He presented with right upper quadrant pain that has been on and off since07/16/2018. He tried laxatives,however, had diarrhea and bloating and pain has progressed. He then presented to ED for further evaluation. On evaluation at the ED, blood work showed leukocytosis. WBC was elevated to 19. Hemoglobin and hematocrit were stable. Creatinine was 1.5, BUN 20. Lactic acid was 3.6. Total bilirubin was elevated to 1.4; AST 37, ALT 62, alkaline phosphatase and lipase were normal. Initial troponin was negative. CT of the abdomen and pelvis showed cholelithiasis with gallbladder wall thickening , suggestive of cholecystitis. He was then admitted for acute cholecystitis. Surgery was called to evaluate patient. Patient was placed on n.p.o. He was given IV fluids and was started on Zosyn. Abdominal ultrasound study was limited due to patient body habitus. Findings showed showed cholelithiasis without sonographic evidence for cholecystitis. HIDA scan showed nonvisualized gallbladder, highly suspicious for acute cholecystitis. He had a rise in troponin and total CK. Power Shovel Mechanic was consulted. Patient with non-ST elevated WA. Twelve-lead electrocardiogram did not show any ischemic changes, however patient has history of coronary artery disease and percutaneous coronary intervention in 2004. Patient will require left heart catheterization and coronary angiography for evaluation of previously implanted stent. 2D echocardiogram showed no evidence of wall motion abnormality with LVEF approximately 60-65%. He was continued on aspirin 81 mg daily, metoprolol was increased 200 mg twice daily. He was continued on atorvastatin. He was eventually started on heparin drip per [place] protocol. He was referred to [facility] medical lab tech instructor. Abdominal examination improved with medical management. No further imaging was needed. Patient was cleared for transfer to [facility]. Hold off on any surgical intervention until cleared by supervisor esters and emulsifiers. Patient has diabetes mellitus. Blood glucose was monitored. Hemoglobin A1c 8.5. He was placed on insulin sliding scale. Off metformin prior to cardiac cath. Total bilirubin normalized. LFTs were downtrending. He was started on clear liquid diet. He was eventually transferred to [facility]. FINAL DIAGNOSES: Acute coronary syndrome/non-ST elevated WA Acute cholecystitis Rhabdomyolysis Diabetes mellitus, out of control DISPOSITION: Patient was transferred to [facility]. DISCHARGE MEDICATIONS: Refer to medication reconciliation list. I have been assigned to dictate discharge summary on this account, and I was not involved in the patient's management. Katerina Monsalve NP Jul 26, 2018 12:47
--- NOTE | 2018-07-27 00:42 | Discharge Summary ---
DATE OF ADMISSION: 07/21/2018 DATE OF DISCHARGE: 07/25/2018 PERTINENT HISTORY: The patient is a 68-year-old man, who presented with right upper quadrant pain and clinical cholecystitis. He has a history of diabetes, hypertension, and coronary artery disease. PERTINENT PHYSICAL FINDINGS: LUNGS: Clear. HEART: Regular rhythm. ABDOMEN: Soft. Mild right upper quadrant tenderness at the time of my exam. EXTREMITIES: No edema. COURSE IN THE HOSPITAL: The patient had leukocytosis, elevated liver enzymes, and clinical cholecystitis. He was seen by Dr. Sosa in surgical consultation. The patient also had elevated troponin and perhaps vague chest pain, but no typical angina. He was seen by Dr. Ramos in Cardiology consult in view of his troponin rise, who diagnosed him with [id number] myocardial infarction. Maximum troponin was 1.526. The patient is hemodynamically stable without any arrhythmias or CHF. He was placed on the transfer list to [facility] for coronary angiography and subsequent transfer was made for further cardiac evaluation at [facility]. FINAL DIAGNOSES: 1. Acute cholecystitis. 2. Tha-AX-cjiavxlce myocardial infarction. 3. History of right coronary artery stent in the past. 4. History of obesity. 5. History diabetes. 6. History of hypertension. DISCHARGE DISPOSITION: To [facility] where his medications and treatment regimen will be reassessed after detailed cardiac evaluation there. Souleymane Garcias M.D. DR: IFEANYI JOB#: [id number] CC:
== END 2018-07-25 23:23 | disposition short-term general hospital (02) | DRG 444 ==
LOC: EMR 08:50 → 4E 09:41 → EDBEDREQSVC 11:02 → EDBEDREQ 11:02 → 2E 07-22 13:05
DX: K81.0 Acute cholecystitis (principal); I21.4 Non-ST elevation (NSTEMI) myocardial infarction; M62.82 Rhabdomyolysis; E66.9 Obesity, unspecified; I25.10 Atherosclerotic heart disease of native coronary artery without angina pectoris; M19.90 Unspecified osteoarthritis, unspecified site; Z95.5 Presence of coronary angioplasty implant and graft; K76.0 Fatty (change of) liver, not elsewhere classified; E11.65 Type 2 diabetes mellitus with hyperglycemia; I10 Essential (primary) hypertension; Z91.14 Patient's other noncompliance with medication regimen
CPT/HCPCS: 36415; 71045; 74177; 76700; 78266; 80053; 80061; 81003; 82248; 82550; 82553; 82962; 83036; 83605; 83690; 83880; 84484; 85007; 85025; 85610; 85730; 87040; 93005; 93306; 96361; 96365; 96368; 96375; 99285; J1815; J2405